=== PATIENT | male | born 1935 | race Caucasian/White ===

== ENCOUNTER → 2017-12-05 08:37 | Outpatient (CLI) | payer MEDICARE, SELFPAY ==
--- NOTE | 2017-12-05 08:37 | DT_ITS ---
This patient was seen during an EMR downtime December 05, 2017 - December 12, 2017. This patient may have a combination of paper and electronic documentation or all paper documentation. All documentation is viewable within the e-chart portion of [facility] for each patient visit.
[2017-12-09 20:47] LABS: ALB/GLOB Ratio 0.9 RATIO (0.9-2.4); AST(SGOT) 16 U/L (15-37); Alanine Aminotransfer ALT/SGPT 20 U/L (16-61); Albumin, Serum 3.7 g/dL (3.2-5.0); Alkaline Phosphatase 33 U/L (45-117); Anion Gap 9 (5-15); BUN 26 mg/dL (7-18); BUN/Creat Ratio 20.6 RATIO (10-20); Calcium,Total 8.6 mg/dL (8.5-10.1); Chloride 108 mmol/L (98-107); Cholesterol 131 mg/dL (200); Creatinine, Serum 1.26 mg/dL (0.70-1.30); EST Glomerular Filtration Rate 58 mL/min (>60); Est Glom Filt Rate - Afr Amer 70 mL/min (>60); Glucose 99 mg/dL (74-106); High Density Lipoprotein 35 mg/dL; Magnesium 2.1 mg/dL (1.6-2.6); Potassium 4.1 mmol/L (3.5-5.1); Protein, Total 7.7 g/dL (6.4-8.2); Sodium Level 142 mmol/L (136-145); Triglycerides 101 mg/dL; Very Low Density Lipoprotein 20 mg/dL (5-40)
== END ==
PROVIDERS: Family Provider Family Medicine; PCP Family Medicine; Visit Provider Family Medicine
DX: Z51.81 Encounter for therapeutic drug level monitoring (principal); E78.5 Hyperlipidemia, unspecified
CPT/HCPCS: 80053; 80061; 83735

== ENCOUNTER → 2019-03-30 12:17 | Outpatient (CLI) | payer MEDICARE, SELFPAY ==
[2016-01-08 08:56] VITALS: BMI 22.8
[2019-03-30 14:25] LABS: Absolute Lymphocyte Count 1.79 X10^3/uL (0.83-4.51); Absolute Neutrophil Count 3.3 X10^3/uL (2.0-7.7); Basophil# 0.04 X10^3/uL; Basophil% 0.7 % (0-1); Eosinophil# 0.24 X10^3/uL; Eosinophils% 4.1 % (0-5); Hemoglobin 13.2 g/dL (13.0-16.5); Lymphocyte # 1.79 X10^3/ul (4.0); Lymphocyte % 30.5 % (19-41); Mean Corp Hgb Conc 31.4 g/dL (32-36); Mean Corpuscular Hgb 30.3 pg (27.0-32.0); Mean Corpuscular Volume 96.3 fL (80-94); Mean Platelet Vol. 11.1 fl (6.2-12.0); Monocyte# 0.45 X10^3/uL; Monocyte% 7.7 % (0-10); NRBC Flagged by Analyzer 0 % (0-5); Neutrophil # 3.31 X10^3/uL (2.7-7.7); Neutrophil % 56.5 % (47-70); Platelet Count 229 K/mm3 (150-450); RBC Distribution Width SD 49.5 fl (35.1-43.9); Red Blood Count 4.36 M/mm3 (4.6-6.2); White Blood Count 5.9 K/mm3 (4.4-11.0)
[2019-03-30 14:32] LABS: ALB/GLOB Ratio 0.9 RATIO (0.9-2.4); AST(SGOT) 12 U/L (15-37); Alanine Aminotransfer ALT/SGPT 17 U/L (16-61); Albumin, Serum 3.9 g/dL (3.2-5.0); Alkaline Phosphatase 35 U/L (45-117); Anion Gap 3 (5-15); BUN 19 mg/dL (7-18); BUN/Creat Ratio 13.5 RATIO (10-20); Chloride 106 mmol/L (98-107); Cholesterol 142 mg/dL (200); Creatinine, Serum 1.41 mg/dL (0.70-1.30); EST Glomerular Filtration Rate 51 mL/min (>60); Est Glom Filt Rate - Afr Amer 62 mL/min (>60); Globulin 4.2 g/dL (2.2-4.2); Glucose 97 mg/dL (74-106); High Density Lipoprotein 46 mg/dL; Potassium 4.6 mmol/L (3.5-5.1); Protein, Total 8.1 g/dL (6.4-8.2); Sodium Level 139 mmol/L (136-145); Triglycerides 98 mg/dL; Very Low Density Lipoprotein 20 mg/dL (5-40)
[2019-03-30 16:28] LABS: Hepatitis C Antibody Non-Reactive (Nonreactive)
== END ==
PROVIDERS: Family Provider Family Medicine; PCP Family Medicine; Referring Provider Family Medicine; Visit Provider Family Medicine
DX: Z11.59 Encounter for screening for other viral diseases (principal); Z51.81 Encounter for therapeutic drug level monitoring; E78.5 Hyperlipidemia, unspecified
CPT/HCPCS: 80053; 80061; 85025; 86803

== ENCOUNTER 2019-05-11 10:32 | Emergency (ER) | payer MEDICARE, SELFPAY ==
[2019-05-11 10:33] VITALS: BP 164/79; PULSE 102; RESP 16; TEMP 36.4; O2SAT 98; BMI 23.6
[2019-05-11 10:49] VITALS: BP 138/81; PULSE 86; RESP 17; O2SAT 96
--- NOTE | 2019-05-11 10:56 | EKG12_ITS ---
Test Reason : Blood Pressure : / mmHG Vent. Rate : 087 BPM Atrial Rate : 087 BPM P-R Int : 166 ms QRS Dur : 078 ms QT Int : 370 ms P-R-T Axes : 076 078 074 degrees QTc Int : 445 ms Normal sinus rhythm Normal ECG Confirmed by NELI CANCHOLA, HAWK ([id number]), newspaper or periodical editor ALEIDA AMBROSE ([id number]) on 05/15/2019 2:17:28 PM Referred By: LUIS/TIMMY Confirmed By:HAWK QUINTEROS MD
--- NOTE | 2019-05-11 10:56 | RAD_ITS ---
STUDY: X-RAY CHEST REASON FOR EXAM: Male, 83 years old. Hypertension. Left arm pain. TECHNIQUE: Single AP portable view of the chest. COMPARISON: None. FINDINGS: EKG electrodes are seen. Hyperinflation. The lungs are clear. There is no demonstrated pleural abnormality. Normal size heart. Normal mediastinum and jason. Normal visualized pulmonary arteries. There is atherosclerotic calcification of the aortic arch with tortuosity. There are diffuse degenerative changes of the visualized thoracic spine. Normal visualized ribs, clavicles, and shoulders. There is no demonstrated abnormality of the visualized soft tissue structures of the upper abdomen. RAD/Chest 1 View (Portable) IMPRESSION: Hyperinflation. Electronically Signed: Sean Bacon, at 11:18 EST , Service support ,
[2019-05-11 11:08] VITALS: O2SAT 96
--- NOTE | 2019-05-11 11:12 | ED.VISSUMM ---
- ER Visit Summary Date of Service: 05/11/19 Chief Complaint: High blood pressure History of Present Illness: The patient is a 83 M who woke up this morning between 3 and 4 AM. He was having some pain in his left forearm. It felt like an aching pain and was 9 out of 10. It did not radiate. Nothing seemed to bring it on or make it worse. Nothing made it better, although he has not taken anything for it. He noted his blood pressure was 169/103. His numbers, specifically the diastolic pressure, has never been this high. He does not take anything for blood pressure. He has a history of GERD, hyperlipidemia, and glaucoma. He denies any history of coronary disease, aortic disease. Denies any history of radiculopathy. Denies any recent injury or new activities. Denies weakness or numbness. Denies any skin changes. Physical Examination: Blood pressure 164/79. Otherwise vitals unremarkable. Patient sitting upright and appears in no acute distress. Talking, breathing, moving comfortably. Heart regular rate and rhythm. Lungs clear. Neck is nontender with good range of motion. Extremities nontender with good range of motion. Good strength and sensation. Good pulses. Good neurologic testing. Legs nontender with no edema. Test Results: EKG showed sinus rhythm at a rate of 87 with no signs of ischemia or infarction pattern. Laboratory studies and chest x-ray pending. Emergency Department Course and Treatment: Patient presents with left arm pain of an unknown etiology. No inciting events, but also nothing concerning on exam. I do not believe any diagnostic testing is indicated for this. It seems to be getting better and is currently 3 out of 10. He declines any pain medicine for this. His pressure was elevated at home, but it is 164/79 here. We will continue to monitor. Patient does have history of hyperlipidemia, but no other significant medical history. Will check basic labs and chest x-ray. Repeat blood pressure in the 120s over 80s. No further intervention. Work-up here is unremarkable. Nothing to suggest ACS. There is no indication for hospitalization or inpatient care based on his very atypical symptoms and fairly low risk. There is no indication to image his arm. He was advised to take Tylenol and/or Motrin/Aleve for pain. Monitor for any new or worsening symptoms. Follow-up with primary care. Treatment Plan: As above Disposition: Discharge Impression: 1. Left arm pain This note was generated with [employer] dictation software. It may contain incorrect words, spelling, and punctuation that were not noted in review of the chart prior to signing ED Disposition - Plan for ED Patient: Referrals: Yung Covington MD [Primary Care Provider] -
[2019-05-11 11:18] LABS: Absolute Lymphocyte Count 1.32 X10^3/uL (0.83-4.51); Absolute Neutrophil Count 3.7 X10^3/uL (2.0-7.7); Basophil# 0.03 X10^3/uL; Basophil% 0.5 % (0-1); Eosinophil# 0.22 X10^3/uL; Eosinophils% 3.9 % (0-5); Hematocrit 37.9 % (40-54); Hemoglobin 12.1 g/dL (13.0-16.5); Lymphocyte # 1.32 X10^3/ul (4.0); Lymphocyte % 23.7 % (19-41); Mean Corp Hgb Conc 31.9 g/dL (32-36); Mean Corpuscular Hgb 30.7 pg (27.0-32.0); Mean Corpuscular Volume 96.2 fL (80-94); Mean Platelet Vol. 10.1 fl (6.2-12.0); Monocyte% 5.4 % (0-10); NRBC Flagged by Analyzer 0 % (0-5); Neutrophil # 3.69 X10^3/uL (2.7-7.7); Neutrophil % 66.1 % (47-70); Platelet Count 212 K/mm3 (150-450); RBC Distribution Width CV 13.7 % (11.6-14.6); RBC Distribution Width SD 48.5 fl (35.1-43.9); Red Blood Count 3.94 M/mm3 (4.6-6.2); White Blood Count 5.6 K/mm3 (4.4-11.0)
[2019-05-11 11:36] LABS: Anion Gap 9 (5-15); BUN 23 mg/dL (7-18); BUN/Creat Ratio 15.2 RATIO (10-20); Calcium,Total 8.6 mg/dL (8.5-10.1); Chloride 107 mmol/L (98-107); Creatinine, Serum 1.51 mg/dL (0.70-1.30); EST Glomerular Filtration Rate 47 mL/min (>60); Est Glom Filt Rate - Afr Amer 57 mL/min (>60); Estimated Creatinine Clearance 35.23 ml/min; Glucose 201 mg/dL (74-106); Potassium 4.2 mmol/L (3.5-5.1); Sodium Level 141 mmol/L (136-145)
--- NOTE | 2019-05-11 11:58 | ED.DEP ---
ED Disposition - Plan for ED Patient: Instructions: HYPERTENSION, To Be Confirmed Referrals: Yung Covington MD [Primary Care Provider] -
[2019-05-11 12:27] VITALS: BP 144/78; PULSE 76; RESP 14; O2SAT 96
== END 2019-05-11 12:28 | disposition home or self-care (01) ==
PROVIDERS: Emergency Provider Emergency Medicine; Family Provider Family Medicine; PCP Family Medicine
DX: M79.632 Pain in left forearm (principal); E78.5 Hyperlipidemia, unspecified; K21.9 Gastro-esophageal reflux disease without esophagitis; H40.9 Unspecified glaucoma; Z79.82 Long term (current) use of aspirin; Z79.899 Other long term (current) drug therapy; Z87.891 Personal history of nicotine dependence
CPT/HCPCS: 71045; 80048; 84484; 85025; 93005; 99284; A4216

== ENCOUNTER → 2019-10-03 09:15 | Outpatient (CLI) | payer MEDICARE, SELFPAY ==
--- NOTE | 2019-10-03 09:18 | RAD_ITS ---
STUDY: AIR-CONTRAST UPPER GI SERIES. REASON FOR EXAM: Male, 83 years old. HX BARRETTS ESOPHAGUS. 18 IMAGES FLUOROSCOPY TIME (if supplied): ( 60 seconds ) minutes/seconds TECHNIQUE: The patient ingested barium. Imaging of the esophagus, stomach and duodenum were obtained. COMPARISON: None. FINDINGS: There is evidence of a small sliding hiatal hernia with gastroesophageal reflux. 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 The afferent and efferent loops are patent. Noted some ulceration. No mass lesion is seen. RAD/Upper GI Dual Contrast IMPRESSION: Small hiatal hernia with gastroesophageal reflux. Status post Bilroth 2 anastomosis. Electronically Signed: Sean Bacon, at 13:10 EDT , Service support ,
== END ==
PROVIDERS: PCP Family Medicine; Referring Provider Nurse Practitioner Adult Health; Visit Provider Nurse Practitioner Adult Health
DX: K22.70 Barrett's esophagus without dysplasia (principal)
CPT/HCPCS: 74246

== ENCOUNTER → 2020-04-18 12:45 | Outpatient (CLI) | payer MEDICARE, SELFPAY | PROVIDERS: PCP Family Medicine; Referring Provider Family Medicine | DX: R73.9 Hyperglycemia, unspecified (principal) | CPT/HCPCS: 83036 ==

== ENCOUNTER 2020-07-31 15:38 | Outpatient (RCR) | payer MEDICARE, SELFPAY | END 2020-07-31 23:59 | LOC: IMMUN 15:38 | PROVIDERS: PCP Family Medicine; Referring Provider Family Medicine; Visit Provider Family Medicine | DX: Z23 Encounter for immunization (principal) | CPT/HCPCS: 0011A; 0012A; 91301 ==

== ENCOUNTER → 2020-10-28 13:24 | Outpatient (CLI) | payer MEDICARE, SELFPAY ==
[2020-10-28 14:33] LABS: Hemoglobin A1c 5.9 % (3.8-5.6)
== END ==
PROVIDERS: PCP Family Medicine; Referring Provider Family Medicine; Visit Provider Family Medicine
DX: R73.9 Hyperglycemia, unspecified (principal)
CPT/HCPCS: 83036

== ENCOUNTER → 2021-04-30 12:15 | Outpatient (CLI) | payer MEDICARE, SELFPAY ==
[2021-04-30 12:40] LABS: Cholesterol 149 mg/dL (200); High Density Lipoprotein 36 mg/dL; Triglycerides 106 mg/dL; Very Low Density Lipoprotein 21 mg/dL (5-40)
[2021-04-30 13:29] LABS: Hemoglobin A1c 5.9 % (3.8-5.6)
== END ==
PROVIDERS: PCP Family Medicine; Visit Provider Family Medicine
DX: E78.5 Hyperlipidemia, unspecified (principal); R73.9 Hyperglycemia, unspecified
CPT/HCPCS: 80061; 83036

== ENCOUNTER → 2021-05-18 12:14 | Outpatient (CLI) | payer MEDICARE, SELFPAY ==
[2021-05-18 12:55] LABS: Absolute Lymphocyte Count 1.63 X10^3/uL (0.83-4.51); Absolute Neutrophil Count 3.3 X10^3/uL (2.0-7.7); Basophil# 0.04 X10^3/uL; Basophil% 0.7 % (0-1); Eosinophils% 5.2 % (0-5); Hematocrit 38.9 % (40-54); Hemoglobin 12.9 g/dL (13.0-16.5); Lymphocyte # 1.63 X10^3/ul (0.83-4.51); Lymphocyte % 28.3 % (19-41); Mean Corp Hgb Conc 33.2 g/dL (32-36); Mean Corpuscular Hgb 31.2 pg (27.0-32.0); Mean Corpuscular Volume 94.2 fL (80-94); Monocyte% 8.7 % (0-10); NRBC Flagged by Analyzer 0 % (0-5); Neutrophil # 3.27 X10^3/uL (2.7-7.7); Neutrophil % 56.9 % (47-70); Platelet Count 238 K/mm3 (150-450); RBC Distribution Width CV 13.4 % (11.6-14.6); Red Blood Count 4.13 M/mm3 (4.6-6.2); White Blood Count 5.8 K/mm3 (4.4-11.0)
[2021-05-18 13:13] LABS: Vitamin B12 344 pg/mL (211-911)
[2021-05-18 13:47] LABS: Anion Gap 4 (5-15); BUN 18 mg/dL (7-18); BUN/Creat Ratio 13.6 RATIO (10-20); Chloride 107 mmol/L (98-107); Creatinine, Serum 1.32 mg/dL (0.70-1.30); EST Glomerular Filtration Rate 55 mL/min (>60); Est Glom Filt Rate - Afr Amer 66 mL/min (>60); Ferritin 19 ng/mL (26-388); Glucose 111 mg/dL (74-106); Iron 71 ug/dL (65-175); Iron Binding Capacity,Total 394 ug/dL (250-450); Potassium 4.5 mmol/L (3.5-5.1); Sodium Level 138 mmol/L (136-145)
== END ==
PROVIDERS: PCP Family Medicine; Visit Provider Family Medicine
DX: D64.9 Anemia, unspecified (principal); N28.9 Disorder of kidney and ureter, unspecified
CPT/HCPCS: 80048; 82607; 82728; 82746; 83540; 83550; 85025

== ENCOUNTER → 2021-05-18 16:21 | Outpatient (CLI) | payer MEDICARE, SELFPAY | PROVIDERS: PCP Family Medicine; Visit Provider Family Medicine | DX: D64.9 Anemia, unspecified (principal); N28.9 Disorder of kidney and ureter, unspecified ==

== ENCOUNTER 2022-05-28 17:14 | Inpatient (IN) | payer MEDICARE, SELFPAY ==
[2022-05-28] VITALS (9 sets, daily range): BP systolic 126–145; BP diastolic 78–93; PULSE 66–128; RESP 16–18; TEMP 36.2–36.8; O2SAT 97–100; BMI 24.1; BMI 23.2
--- NOTE | 2022-05-28 17:57 | EKG12_ITS ---
Test Reason : SOB Blood Pressure : / mmHG Vent. Rate : 076 BPM Atrial Rate : 076 BPM P-R Int : 170 ms QRS Dur : 078 ms QT Int : 406 ms P-R-T Axes : 081 094 081 degrees QTc Int : 456 ms Normal sinus rhythm Possible Right ventricular hypertrophy Abnormal ECG Confirmed by NELI CANCHOLA, HAWK ([id number]), slot editor LISA JC ([id number]) on 05/31/2022 11:23:47 AM Referred By: JEANNE/LANDON Confirmed By:HAWK QUINTEROS MD
--- NOTE | 2022-05-28 17:57 | EDS_ITS ---
HPI History of Present Illness Chief Complaint: Shortness of Breath Narrative Narrative: 86-year-old male with history of hyperlipidemia, GERD presenting with discomfort in the chest. He states this is exertional. He states this has been on for about 2 weeks. It is intermittent. He states that sometimes he can walk his dog around the block measuring about a half a mile and does have any symptoms and at other times he gets some discomfort and feels a little bit short of breath. He does feel lightheaded at times. He states when he stops to rest takes about 5 minutes to recover. Denies any cardiac history. Denies any history of DVT/PE and has no risk factors. PFSH PFSH Medical History no medical history Home Medications Dorzolamide Hcl/Timolol Maleat [Dorzolamide-Timolol Eye Drops] 1 drp OP BID 09/05/15 [History Last Taken Unknown] Omeprazole [Prilosec] 40 mg PO DAILY 09/05/15 [History Last Taken Unknown] simvastatin 10 mg tablet 10 mg PO QHS 09/05/15 [History Last Taken Unknown] latanoprost 0.005 % eye drops 1 drp EACH EYE DAILY 05/28/22 [History Last Taken Unknown] Allergy/AdvReac Type Severity Reaction Status Date / Time No Known Allergies Allergy Verified 05/28/22 17:15 Surgical History no surgical history Social History Smoking Status: Former smoker ROS ROS ED Constitutional Constitutional ED: Denies chills or fever(s) Eyes Eyes: Denies change in vision ENT ENT ED: Denies rhinorrhea or sore throat Cardiovascular Cardiovascular: Reports as per HPI Respiratory/Chest Respiratory/Chest: Reports dyspnea on exertion Gastrointestinal Gastrointestinal: Denies abdominal pain or constipation Genitourinary Genitourinary ED: Denies dysuria or hematuria Musculoskeletal Musculoskeletal: Denies arthralgias Integumentary Denies abscess Neurologic Neurologic: Denies headache(s) or paresthesias Psychiatric Psychiatric: Denies anxiety or depression EXAM Physical Exam Const Vital Signs: 05/28/22 17:15 05/28/22 17:53 05/28/22 18:09 Temperature 97.1 F L Temperature Source Temporal Pulse Rate 79 Respiratory Rate 18 Respiratory Effort Normal Respiratory Depth Normal Respiratory Pattern Normal Blood Pressure 136/93 H Blood Pressure Mean 107 Pulse Ox 100 97 Oxygen Delivery Method Room Air Room Air Room Air 05/28/22 19:14 05/28/22 21:00 Temperature 97.8 F Temperature Source Temporal Pulse Rate 66 98 Respiratory Rate 16 16 Respiratory Effort Respiratory Depth Respiratory Pattern Blood Pressure 134/78 H 145/78 H Blood Pressure Mean 96 100 Pulse Ox 98 100 Oxygen Delivery Method Room Air Room Air Positive well nourished General Appearance ED: NAD HEENT Reports TM's clear and moist mucous membranes Tympanic Membrane ED: Yes TM's clear Eyes PERRL and EOMs intact bilaterally Neck no lymphadenopathy Chest Wall inspection of chest normal Resp normal respiratory effort and clear to auscultation bilaterally Effort and Inspection: Negative for respiratory distress Auscultation: Negative for rales, rhonchi or wheezes Cardio regular rate and regular rhythm GI normal to inspection, nondistended, normoactive bowel sounds Neuro oriented x3 and CN's II-XII intact bilaterally Sensorium / Orientation: awake and alert Motor Exam: strength 5/5 throughout Psych mental status grossly normal Skin no rashes or lesions noted Heart Score History: Highly Suspicious ECG: Normal Age: >/= 65 years Risk Factors: 1 or 2 Risk Factors Troponin: </= Normal Limit Score: 5 MDM MDM MDM Narrative Medical decision making narrative: Patient presenting with chest discomfort and a little bit of dyspnea and lightheadedness with exertion. He states this is intermittent. He states he has to rest for 5 minutes when it does occur. He states sometimes he can walk around the block without any problems at all and other days he cannot. No fever, chills, cough. No history of cardiac disease. No DVT/PE risk factors and no history. EKG was obtained which shows sinus rhythm at a ventricular rate of 76 bpm without sign of ischemic change on my interpretation. Chest x-ray my interpretation shows no acute cardiopulmonary process and the radiologist agree. CBC shows a white blood cell count of 11.1, hemoglobin 12.6, hematocrit 39.3, platelets normal at 247. Initial high-sensitivity troponin is 11 and delta troponin is 14. HEART score of 5 based on suspicion, age, risk factors. I did recommend admission to the patient. Discussed this with the patient and Dr. Henderson who is on-call for Dr. Covington. He recommended admission as well. Patient was given 324 mg of aspirin. I discussed with the patient over the holiday weekend his cardiac work-up may not be finished until Tuesday and there might be is in the hospital and he is still amenable to staying. Discussed with hospitalist for admission. Impression: 1. Chest pain 2. Exertional angina 3. Dyspnea Lab Data Attestation: I reviewed the patient's lab results. Labs: Laboratory Results - last 24 hr 05/28/22 05/28/22 05/28/22 18:05 18:05 20:20 WBC 11.1 H RBC 4.06 L Hgb 12.6 L Hct 39.3 L MCV 96.8 H MCH 31.0 MCHC 32.1 RDW Std Deviation 48.3 H RDW Coeff of Pippa 13.6 Plt Count 247 MPV 10.5 Immature Gran % (Auto) 0.400 Neut % (Auto) 75.5 H Lymph % (Auto) 15.5 L [place] % (Auto) 6.0 Eos % (Auto) 2.3 Baso % (Auto) 0.3 Absolute Neuts (auto) 8.4 H Absolute Lymphs (auto) 1.72 Nucleated RBC % 0 Sodium 141 Potassium 4.2 Chloride 109 H Carbon Dioxide 28.0 Anion Gap 4 L BUN 22 H Creatinine 1.18 Estim Creat Clear Calc 42.67 Est GFR (MDRD) Af Amer 75 Est GFR (MDRD) Non-Af 62 BUN/Creatinine Ratio 18.6 Glucose 99 Calcium 9.2 Troponin I High Sens 11 14 Radiography Diagnostic Testing: Clinical Impression(s) from Imaging Studies Chest X-Ray 05/28/22 17:57 IMPRESSION: There are no acute findings. Electronically Signed: Carlos Alberto Velasquez MD at 18:46 EST Reading Location ID and State: [facility] / [place] , Service support , Discharge Plan Triage Chief Complaint: Shortness of Breath ED Provider: Ovidio Johnson Dx/Rx/DC Orders Prescriptions: No Action simvastatin 10 MG tablet 10 mg PO QHS Dorzolamide Hcl/Timolol Maleat [Dorzolamide-Timolol Eye Drops] 10 ML Drops 1 drp OP BID Omeprazole [Prilosec] 40 MG capsule 40 mg PO DAILY latanoprost 0.005 % drops 1 drp EACH EYE DAILY Label Comments: place 1 drop into both eyes at bedtime Primary Care Provider: Yung Covington Referrals: Yung Covington MD [Primary Care Provider] -
--- NOTE | 2022-05-28 17:57 | RAD_ITS ---
STUDY: X-RAY CHEST REASON FOR EXAM: Male, 86 years old. chest pain TECHNIQUE: XR Chest 1 View COMPARISON: 11.8 FINDINGS: There is atherosclerotic calcification of the aortic arch with tortuosity. There are diffuse degenerative changes of the visualized thoracic spine. There is degenerative osteoarthritis of the bilateral shoulders. There is no demonstrated pleural abnormality. Normal size heart. Normal mediastinum and jason. Normal visualized pulmonary arteries. There is no demonstrated abnormality of the visualized soft tissue structures of the upper abdomen. RAD/Chest 1 View (Portable) IMPRESSION: There are no acute findings. Electronically Signed: Carlos Alberto Velasquez MD at 18:46 EST ,
[2022-05-28 18:12] LABS: Absolute Lymphocyte Count 1.72 X10^3/uL (0.83-4.51); Absolute Neutrophil Count 8.4 X10^3/uL (2.0-7.7); Basophil# 0.03 X10^3/uL; Basophil% 0.3 % (0-1); Eosinophil# 0.26 X10^3/uL; Eosinophils% 2.3 % (0-5); Hematocrit 39.3 % (40-54); Hemoglobin 12.6 g/dL (13.0-16.5); Lymphocyte # 1.72 X10^3/ul (0.83-4.51); Lymphocyte % 15.5 % (19-41); Mean Corp Hgb Conc 32.1 g/dL (32-36); Mean Corpuscular Volume 96.8 fL (80-94); Mean Platelet Vol. 10.5 fl (6.2-12.0); Monocyte# 0.67 X10^3/uL; NRBC Flagged by Analyzer 0 % (0-5); Neutrophil # 8.38 X10^3/uL (2.7-7.7); Neutrophil % 75.5 % (47-70); Platelet Count 247 K/mm3 (150-450); RBC Distribution Width CV 13.6 % (11.6-14.6); RBC Distribution Width SD 48.3 fl (35.1-43.9); Red Blood Count 4.06 M/mm3 (4.6-6.2); White Blood Count 11.1 K/mm3 (4.4-11.0)
[2022-05-28 18:42] LABS: Anion Gap 4 (5-15); BUN 22 mg/dL (7-18); BUN/Creat Ratio 18.6 RATIO (10-20); Calcium,Total 9.2 mg/dL (8.5-10.1); Chloride 109 mmol/L (98-107); Creatinine, Serum 1.18 mg/dL (0.70-1.30); EST Glomerular Filtration Rate 62 mL/min (>60); Est Glom Filt Rate - Afr Amer 75 mL/min (>60); Estimated Creatinine Clearance 42.67 ml/min; Glucose 99 mg/dL (74-106); Potassium 4.2 mmol/L (3.5-5.1); Sodium Level 141 mmol/L (136-145); Troponin-I HS (w/2H Reflex) 11 pg/mL (3.0-78.0)
[2022-05-28 20:09] LABS: Reflex Troponin-HS? (from REC) Y
[2022-05-28 20:47] LABS: Troponin-I HS 14 pg/mL (3.0-78.0)
[2022-05-28] MEDS: Aspirin 81 MG TAB.CHEW 324 MG PO (21:18)
--- NOTE | 2022-05-28 21:54 | PCM.HP.STD ---
HPI - General General Date of Admission: 05/28/22 Date of Service: 05/28/22 Chief Complaint: Chest pain HPI Narrative CARLOZ COHEN, is a 86 M with a significant history of hyperlipidemia; glaucoma; hiatal hernia status post surgery and on omeprazole who presents to the emergency department with 2 to 3-week history of exertional retrosternal chest pain. His chest pain is nonradiating his chest pain improves with taking a deep breath. On some days he does not have chest pain. On the day of presentation he walked on a little inclination to a shop and his chest pain re-occurred. Associated with symptoms is shortness of breath; and lightheadedness. He denies any orthopnea or paroxysmal nocturnal dyspnea. He denies any nausea or vomiting. Patient went to his PCPs office and was instructed to come to emergency department for further work-up. Emergency Department doctor after seeing patient discussed case with on-call physician for PCP who recommended patient stays at a hospital for further testing. [facility] Medical History Former smoker GERD (gastroesophageal reflux disease) Medical History no medical history Home Medications Dorzolamide Hcl/Timolol Maleat [Dorzolamide-Timolol Eye Drops] 1 drp OP DAILY 09/05/15 [History Last Taken Unknown] Omeprazole [Prilosec] 40 mg PO DAILY 09/05/15 [History Last Taken Unknown] simvastatin 10 mg tablet 10 mg PO QHS 09/05/15 [History Last Taken Unknown] latanoprost 0.005 % eye drops 1 drp EACH EYE QHS 05/28/22 [History Last Taken Unknown] Allergy/AdvReac Type Severity Reaction Status Date / Time No Known Allergies Allergy Verified 05/28/22 17:15 Family History Other Dementia Heart disease Surgical History History of hip replacement History of repair of hiatal hernia Surgical History no surgical history Social History Smoking Status: Former smoker ROS ROS Narrative Pertinent positives and pertinent negatives as noted in HPI. All other systems were reviewed and are negative Vital Signs Vital Signs Vital Signs: 05/28/22 17:15 05/28/22 17:53 05/28/22 18:09 Temperature 97.1 F L Temperature Source Temporal Pulse Rate 79 Respiratory Rate 18 Respiratory Effort Normal Respiratory Depth Normal Respiratory Pattern Normal Blood Pressure 136/93 H Blood Pressure Mean 107 Pulse Ox 100 97 Oxygen Delivery Method Room Air Room Air Room Air 05/28/22 19:14 05/28/22 21:00 Temperature 97.8 F Temperature Source Temporal Pulse Rate 66 98 Respiratory Rate 16 16 Respiratory Effort Respiratory Depth Respiratory Pattern Blood Pressure 134/78 H 145/78 H Blood Pressure Mean 96 100 Pulse Ox 98 100 Oxygen Delivery Method Room Air Room Air Weight Weight: 72 kg Body Mass Index (BMI) 24.1 Physical Exam Narrative Physical exam: General: Well-nourished, well-developed. Head: Normocephalic, atraumatic, no tenderness Eyes: Vision is grossly intact. EOMI ENT, no trauma, moist mucous membranes, no rhinorrhea Neck: Nontender, full range of motion, no spinal tenderness. CVS: Regular rate and rhythm. S1-S2 present. No murmur, gallop or rub. Respiratory : clear to auscultation bilaterally, chest wall nontender, no wheezing Abdomen: Soft, nontender, nondistended, normal bowel sounds, no masses : Deferred Back: Nontender, no CVA tenderness. Extremities: Nontender full range of motion, no trauma Skin: Normal color, no trauma, abrasions Neuro: Alert, oriented, cranial nerves II through XII grossly intact. Psychiatry: Normal mood. Normal affect. Not depressed. Not anxious. Results Lab / Micro Data Result Diagrams: 05/28/22 18:05 05/28/22 18:05 Labs: Laboratory Results - last 24 hr 05/28/22 18:05: WBC 11.1 H, RBC 4.06 L, Hgb 12.6 L, Hct 39.3 L, MCV 96.8 H, MCH 31.0, MCHC 32.1, RDW Std Deviation 48.3 H, RDW Coeff of Pippa 13.6, Plt Count 247, MPV 10.5, Immature Gran % (Auto) 0.400, Neut % (Auto) 75.5 H, Lymph % (Auto) 15.5 L, [place] % (Auto) 6.0, Eos % (Auto) 2.3, Baso % (Auto) 0.3, Absolute Neuts (auto) 8.4 H, Absolute Lymphs (auto) 1.72, Nucleated RBC % 0 05/28/22 18:05: Sodium 141, Potassium 4.2, Chloride 109 H, Carbon Dioxide 28.0, Anion Gap 4 L, BUN 22 H, Creatinine 1.18, Estim Creat Clear Calc 42.67, Est GFR (MDRD) Af Amer 75, Est GFR (MDRD) Non-Af 62, BUN/Creatinine Ratio 18.6, Glucose 99, Calcium 9.2, Troponin I High Sens 11 05/28/22 20:20: Troponin I High Sens 14 Radiology Impression Chest X-Ray 05/28/22 17:57 IMPRESSION: There are no acute findings. Electronically Signed: Carlos Alberto Velasquez MD at 18:46 EST Reading Location ID and State: [facility] / [place] , Service support , Assessment & Plan Assessment/Plan (1) Angina pectoris: (2) Exertional dyspnea: PLAN: Plan Angina pectoris/exertional dyspnea Place on a monitored bed at PCU Actual CXR image was independently visualized. No acute cardiopulmonary process was noted. Actual EKG tracing was independently visualized. EKG tracing showed no ST or T wave abnormalities. ASA 81 mg p.o. daily ordered Will check lipid panel. CBC and BMP, unremarkable. Initial high sensitive troponin was 11. Repeat 14, trend. Serial cardiac enzymes ordered Stat EKG as needed for chest pain Stress test in the AM if the cardiac enzymes are negative DVT prophylaxis : SCD ordered. Charges/Coding Visit Charges Inpatient E&M: 37861 Init Hosp L2
--- NOTE | 2022-05-28 22:46 | EKG12_ITS ---
Test Reason : admit EKG Blood Pressure : / mmHG Vent. Rate : 125 BPM Atrial Rate : 000 BPM P-R Int : 000 ms QRS Dur : 080 ms QT Int : 346 ms P-R-T Axes : 000 101 037 degrees QTc Int : 499 ms Atrial fibrillation with rapid ventricular response Possible Right ventricular hypertrophy Abnormal ECG When compared with ECG of 28-MAY-2022 17:27, MANUAL COMPARISON REQUIRED, DATA IS UNCONFIRMED Confirmed by NELI CANCHOLA, HAWK ([id number]), website/blog editor LISA JC ([id number]) on 06/01/2022 9:07:50 AM Referred By: Confirmed By:HAWK QUINTEROS MD
[2022-05-28] MEDS: Atorvastatin Calcium 10 MG Tablet 5 MG PO (23:16)
[2022-05-28] MEDS: Latanoprost 0.005% 1 Bottle 1 DRP EACH EYE (23:17)
[2022-05-28] MEDS: Sodium Chloride 0.65% 1 SPRAY SPRAY.BTL NASAL (23:50)
[2022-05-29] VITALS (16 sets, daily range): BP systolic 90–134; BP diastolic 56–82; PULSE 68–180; RESP 15–18; TEMP 36.4–37.3; O2SAT 93–96
[2022-05-29] MEDS: dilTIAZem 25 MG/5 ML Vial 10 MG IV BOLUS ×2 (00:26→08:52)
[2022-05-29] MEDS: 0.9% Saline Lock 10 ML Syringe IV (00:27)
[2022-05-29 00:42] LABS: Magnesium 2.3 mg/dL (1.6-2.6)
[2022-05-29 00:44] LABS: International Normalized Ratio 1.1; Prothrombin Time (Protime)PT. 13.6 SECONDS (11.7-14.9)
[2022-05-29 00:47] LABS: Troponin-I HS 12 pg/mL (3.0-78.0)
[2022-05-29] MEDS: Heparin Injection (Vial) 5,000 UNIT/ML VIAL 4500 UNIT IV (01:00)
[2022-05-29] MEDS: HEPARIN/D5w 25,000 UNITS 25,000 UNITS/250 ML IV.SOLN. 10 UNITS CONT INF ×2 (01:00→23:26)
[2022-05-29] MEDS: Acetaminophen 325 MG Tablet 650 MG PO ×2 (05:42→20:55)
[2022-05-29] MEDS: Aspirin E.C. 81 MG Tablet PO (05:43)
--- NOTE | 2022-05-29 06:16 | ECHOD_ITS ---
Reason For Study: SOB, Chest pain Procedure This was a 2D Doppler, Color Flow transthoracic echocardiogram. Exam performed portable in patient room. Left Ventricle Normal left ventricle. Mild concentric left ventricular hypertrophy. Left ventricular systolic function is normal. The estimated ejection fraction is 60 %. No regional wall motion abnormalities noted. Right Ventricle Normal RV size. Normal systolic function. Atria Normal left atrium. Normal right atrium. Mitral Valve Normal mitral valve. Tricuspid Valve Normal tricuspid valve. Aortic Valve Trisinus/trileaflet aortic valve. Mild focal aortic valve calcification. Pulmonic Valve Normal pulmonic valve. Great Vessels Normal aortic root. The pulmonary artery is normal size. Normal inferior vena cava. Pericardium/Pleural No pericardial effusion. MMode/2D Measurements & Calculations LVIDd: 3.6 cm IVSd: 1.2 cm Ao root diam: 3.7 cm LVIDs: 2.1 cm LVPWd: 1.2 cm RVDd: 3.1 cm FS: 41.2 % LAV(MOD-bp): 45.8 ml LVAd ap4: 23.6 cm2 LVAd ap2: 24.2 cm2 LAV(MOD-bp) Indexed: 25.1 ml/m2 LVLd ap4: 7.9 cm LVLd ap2: 7.9 cm LAV(MOD-sp2): 40.9 ml EDV(MOD-sp4): 58.1 ml EDV(MOD-sp2): 62.5 ml LAV(MOD-sp4): 39.7 ml EDV(sp4-el): 59.9 ml EDV(sp2-el): 63.0 ml LVAs ap4: 12.4 cm2 LVAs ap2: 12.3 cm2 LVLs ap4: 6.6 cm LVLs ap2: 6.5 cm ESV(MOD-sp4): 20.1 ml ESV(MOD-sp2): 19.6 ml ESV(sp4-el): 19.5 ml ESV(sp2-el): 19.8 ml EF(MOD-sp4): 65.4 % EF(MOD-sp2): 68.5 % EF(sp4-el): 67.4 % SV(MOD-sp4): 38.0 ml SV(MOD-sp2): 42.8 ml SV(sp4-el): 40.4 ml LA dimension(2D): 4.0 cm LA A4 area: 16.2 cm2 RA A4 area: 13.4 cm2 Doppler Measurements & Calculations MV E max alec: 86.6 cm/sec Lat Peak E' Alec: 7.5 cm/sec Med Peak E' Alec: 7.2 cm/sec MV A max alec: 109.8 cm/sec E/E' lat: 11.6 E/E' med: 12.1 MV E/A: 0.79 Ao V2 max: 109.0 cm/sec LV V1 max: 79.1 cm/sec PA V2 max: 102.6 cm/sec Ao max P.8 mmHg LV V1 max P.5 mmHg PA V2 mean: 79.3 cm/sec TR max alec: 208.4 cm/sec TR max P.4 mmHg ECHO/Echo Complete Interpretation Summary Normal left ventricle. Mild concentric left ventricular hypertrophy. Left ventricular systolic function is normal. The estimated ejection fraction is 60 %. Mild focal aortic valve calcification. Ordering Physician: Yoel Kirk Performed By: Renu Hardin RDCS
[2022-05-29 07:15] LABS: Absolute Lymphocyte Count 0.34 X10^3/uL (0.83-4.51); Absolute Neutrophil Count 8.5 X10^3/uL (2.0-7.7); Basophil# 0.03 X10^3/uL; Basophil% 0.3 % (0-1); Eosinophils% 1.1 % (0-5); Hematocrit 37.3 % (40-54); Lymphocyte # 0.34 X10^3/ul (0.83-4.51); Lymphocyte % 3.7 % (19-41); Mean Corp Hgb Conc 32.2 g/dL (32-36); Mean Corpuscular Hgb 31.3 pg (27.0-32.0); Mean Corpuscular Volume 97.1 fL (80-94); Mean Platelet Vol. 10.4 fl (6.2-12.0); Monocyte# 0.27 X10^3/uL; Monocyte% 2.9 % (0-10); NRBC Flagged by Analyzer 0 % (0-5); Neutrophil # 8.54 X10^3/uL (2.7-7.7); Neutrophil % 91.7 % (47-70); POSITIVE DIFFERENTIAL YES; Platelet Count 216 K/mm3 (150-450); RBC Distribution Width CV 13.5 % (11.6-14.6); RBC Distribution Width SD 48.3 fl (35.1-43.9); Red Blood Count 3.84 M/mm3 (4.6-6.2); White Blood Count 9.3 K/mm3 (4.4-11.0)
[2022-05-29 07:20] LABS: Differential Indicated SCAN CRITERIA MET
[2022-05-29 07:31] LABS: Partial Thromboplast Time 64.2 Seconds (24.1-36.2)
[2022-05-29 07:41] LABS: Anion Gap 5 (5-15); BUN 22 mg/dL (7-18); BUN/Creat Ratio 17.1 RATIO (10-20); Calcium,Total 8.6 mg/dL (8.5-10.1); Chloride 111 mmol/L (98-107); Cholesterol 144 mg/dL (200); Creatinine, Serum 1.29 mg/dL (0.70-1.30); EST Glomerular Filtration Rate 56 mL/min (>60); Est Glom Filt Rate - Afr Amer 68 mL/min (>60); Estimated Creatinine Clearance 39.03 ml/min; Glucose 134 mg/dL (74-106); High Density Lipoprotein 36 mg/dL; Potassium 3.8 mmol/L (3.5-5.1); Sodium Level 140 mmol/L (136-145); Thyroid Stim Hormone (TSH) 2.36 uIU/mL (0.358-3.74); Triglycerides 90 mg/dL; Very Low Density Lipoprotein 18 mg/dL (5-40)
[2022-05-29 09:24] LABS: Differential Comment SCANNED
--- NOTE | 2022-05-29 09:26 | CON.PCM.CA_ITS ---
Assessment & Plan Assessment/Plan (1) Paroxysmal atrial fibrillation: PLAN: He presents with some exertional dyspnea and is noted to have paroxysmal atrial fibrillation. My recommendations at this time would be to obtain an echocardiogram to assess his ventricular function * Evaluate the results of the stress test * Continue the beta-rehan * Continue heparin for now * His [id number] score is actually 1 (2) Exertional dyspnea: PLAN: We will reevaluate his echocardiogram to assess what his left ventricular function is and depending on the findings further recommendations will be made. Thank you for allowing me to participate in the care of your patient. Please don't hesitate to call if any issues arise. HPI Consult Data Date of Consult: 05/29/22 HPI Narrative HPI Narrative: CARLOZ COHEN, is a 86 M who presents to the emergency room complaining of some shortness of breath with exertion and mild chest discomfort. He is actually quite an active man and has been walking his dog without much problem. He however says that he has had some recent shortness of breath. In the emergency room he was noted to be in sinus rhythm and was admitted. However on the telemetry floor he has been noted to be going in and out of atrial fibrillation. He was started on a heparin drip and scheduled for an echocardiogram as well as a stress test. During the stress test he was noted to be going in and out of A. fib. He denies any chest pain at this time. [facility] Medical History Former smoker GERD (gastroesophageal reflux disease) Medical History no medical history Home Medications Dorzolamide Hcl/Timolol Maleat [Dorzolamide-Timolol Eye Drops] 1 drp OP DAILY 09/05/15 [History Last Taken Unknown] Omeprazole [Prilosec] 40 mg PO DAILY 09/05/15 [History Last Taken Unknown] simvastatin 10 mg tablet 10 mg PO QHS 09/05/15 [History Last Taken Unknown] latanoprost 0.005 % eye drops 1 drp EACH EYE QHS 05/28/22 [History Last Taken Unknown] Allergy/AdvReac Type Severity Reaction Status Date / Time No Known Allergies Allergy Verified 05/28/22 17:15 Family History Other Dementia Heart disease Surgical History History of hip replacement History of repair of hiatal hernia Surgical History no surgical history Social History Smoking Status: Former smoker ROS Constitutional Constitutional: Denies fever(s) or weight loss Eyes Eyes: Reports systems reviewed and no addt'l complaints, except as documented ENT HEENT: Reports systems reviewed and no addt'l complaints, except as documented Cardiovascular Cardiovascular: Reports dyspnea on exertion and palpitations; Denies chest pain at rest, chest pain with activity, edema or paroxysmal nocturnal dyspnea Respiratory/Chest Respiratory/Chest: Denies dyspnea on exertion, productive cough, shortness of breath at rest or shortness of breath with exertion Gastrointestinal Gastrointestinal: Denies change in bowel habits, nausea, vomiting or weight changes Genitourinary Genitourinary: Denies difficulty urinating Musculoskeletal Musculoskeletal: Denies joint stiffness or muscle weakness Integumentary Integumentary: Denies lesions Neurologic Neurologic: Denies dizziness or syncope Psychiatric Psychiatric: Denies anxiety Endocrine Endocrinology: Denies excessive sweating or fatigue Hematologic/Lymphatic Hematologic/Lymphatic: Denies anemia Allergic/Immunologic Allergic/Immunologic: Denies seasonal rhinorrhea Physical Exam Const alert, oriented x3 and no apparent distress General Appearance: cooperative HEENT hearing grossly normal bilaterally Head and Scalp: atraumatic Eyes EOMs intact bilaterally Neck General: normal visual inspection Chest inspection of chest normal and palpation of chest normal Resp normal respiratory effort Auscultation: clear to auscultation bilaterally Cardio regular rate, regular rhythm, S1 normal heart sound and S2 normal heart sound Jugular Venous Distention: JVD GI normal to inspection, nondistended, normoactive bowel sounds Extremity normal capillary refill and no pedal edema Peripheral Pulses: Yes pulses 2+ throughout and femoral pulses present Skin no rashes or lesions noted Neuro oriented x3 and CN's II-XII intact bilaterally Psych Appearance: grossly normal and appropriate Risk Stratification Risk Stratification Applicable: No Objective Data Vital Signs: Vital Signs Temp Pulse Resp BP Pulse Ox O2 Del Method 99.2 F H 106 H 18 102/71 93 Room Air 05/29/22 04:55 05/29/22 04:55 05/29/22 04:55 05/29/22 04:55 05/29/22 04:55 05/29/22 04:56 Oxygen Delivery Method Room Air Weight: 153 lb 7.068 oz Body Mass Index (BMI) 23.2 Intake & Output: Intake and Output for Last 24 Hours 05/27/22 05/28/22 05/29/22 23:59 23:59 23:59 Intake Total 66.17 / 66.17 Output Total 400 / 400 Balance -333.83 / -333.83 Lab / Micro Data Result Diagrams: 05/29/22 07:06 05/29/22 07:06 Labs: Laboratory Results - last 24 hr 05/28/22 18:05: WBC 11.1 H, RBC 4.06 L, Hgb 12.6 L, Hct 39.3 L, MCV 96.8 H, MCH 31.0, MCHC 32.1, RDW Std Deviation 48.3 H, RDW Coeff of Pippa 13.6, Plt Count 247, MPV 10.5, Immature Gran % (Auto) 0.400, Neut % (Auto) 75.5 H, Lymph % (Auto) 15.5 L, [place] % (Auto) 6.0, Eos % (Auto) 2.3, Baso % (Auto) 0.3, Absolute Neuts (auto) 8.4 H, Absolute Lymphs (auto) 1.72, Nucleated RBC % 0 05/28/22 18:05: Sodium 141, Potassium 4.2, Chloride 109 H, Carbon Dioxide 28.0, Anion Gap 4 L, BUN 22 H, Creatinine 1.18, Estim Creat Clear Calc 42.67, Est GFR (MDRD) Af Amer 75, Est GFR (MDRD) Non-Af 62, BUN/Creatinine Ratio 18.6, Glucose 99, Calcium 9.2, Troponin I High Sens 11 05/28/22 20:20: Troponin I High Sens 14 05/29/22 00:14: Troponin I High Sens 12 05/29/22 00:14: Magnesium 2.3 05/29/22 00:24: PT 13.6, INR 1.1, APTT 32.0 05/29/22 07:06: WBC 9.3, RBC 3.84 L, Hgb 12.0 L, Hct 37.3 L, MCV 97.1 H, MCH 31.3, MCHC 32.2, RDW Std Deviation 48.3 H, RDW Coeff of Pippa 13.5, Plt Count 216, MPV 10.4, Immature Gran % (Auto) 0.300, Neut % (Auto) 91.7 H, Lymph % (Auto) 3.7 L, [place] % (Auto) 2.9, Eos % (Auto) 1.1, Baso % (Auto) 0.3, Absolute Neuts (auto) 8.5 H, Absolute Lymphs (auto) 0.34 L, Nucleated RBC % 0, Differential Comment SCANNED 05/29/22 07:06: Sodium 140, Potassium 3.8, Chloride 111 H, Carbon Dioxide 24.0, Anion Gap 5, BUN 22 H, Creatinine 1.29, Estim Creat Clear Calc 39.03, Est GFR (MDRD) Af Amer 68, Est GFR (MDRD) Non-Af 56 L, BUN/Creatinine Ratio 17.1, Glucose 134 H, Calcium 8.6, Triglycerides 90, Cholesterol 144, LDL Cholesterol 90, VLDL Cholesterol 18, HDL Cholesterol 36 L, TSH 2.36 05/29/22 07:06: APTT 64.2 H Cardiology Labs/Tests 05/28/22 18:05: WBC 11.1 H, RBC 4.06 L, Hgb 12.6 L, Hct 39.3 L, MCV 96.8 H, MCH 31.0, MCHC 32.1, Plt Count 247, MPV 10.5, Immature Gran % (Auto) 0.400, Neut % (Auto) 75.5 H, Lymph % (Auto) 15.5 L, [place] % (Auto) 6.0, Eos % (Auto) 2.3, Baso % (Auto) 0.3, Absolute Neuts (auto) 8.4 H, Nucleated RBC % 0 05/28/22 18:05: Sodium 141, Potassium 4.2, Chloride 109 H, Carbon Dioxide 28.0, Anion Gap 4 L, BUN 22 H, Creatinine 1.18, Est GFR (MDRD) Af Amer 75, Est GFR (MDRD) Non-Af 62, BUN/Creatinine Ratio 18.6, Glucose 99, Calcium 9.2 05/29/22 00:14: Magnesium 2.3 05/29/22 00:24: PT 13.6, INR 1.1, APTT 32.0 05/29/22 07:06: WBC 9.3, RBC 3.84 L, Hgb 12.0 L, Hct 37.3 L, MCV 97.1 H, MCH 31.3, MCHC 32.2, Plt Count 216, MPV 10.4, Immature Gran % (Auto) 0.300, Neut % (Auto) 91.7 H, Lymph % (Auto) 3.7 L, [place] % (Auto) 2.9, Eos % (Auto) 1.1, Baso % (Auto) 0.3, Absolute Neuts (auto) 8.5 H, Nucleated RBC % 0 05/29/22 07:06: Sodium 140, Potassium 3.8, Chloride 111 H, Carbon Dioxide 24.0, Anion Gap 5, BUN 22 H, Creatinine 1.29, Est GFR (MDRD) Af Amer 68, Est GFR (MDRD) Non-Af 56 L, BUN/Creatinine Ratio 17.1, Glucose 134 H, Calcium 8.6, Triglycerides 90, Cholesterol 144, LDL Cholesterol 90, VLDL Cholesterol 18, HDL Cholesterol 36 L 05/29/22 07:06: APTT 64.2 H Rhythm: EKG: ECHO: Stress Test: Cardiac Cath: PCI: CT Surgery: Holter monitor: EPS: PPM: CXR: Chest CT Scan: Radiography Diagnostic Testing: Radiology Impression Chest X-Ray 05/28/22 17:57 IMPRESSION: There are no acute findings. Electronically Signed: Carlos Alberto Velasquez MD at 18:46 EST Reading Location ID and State: [facility] / [place] , Service support ,
[2022-05-29] MEDS: Dorzolamide HCL/Timolol 10 ml Bottle 1 DRP OPHTHALMIC (09:41)
[2022-05-29] MEDS: Pantoprazole Sodium 40 MG Tablet PO (09:44)
--- NOTE | 2022-05-29 09:46 | STRESSREP ---
Stress Test Report Pharmacologic myocardial perfusion stress test. 86-year-old man with a history of dyspnea and paroxysmal atrial fibrillation. Resting EKG demonstrates atrial fibrillation with a rate of 160 bpm. Blood pressure is 92/58 mmHg. 0.4 mg of regadenoson was infused per usual protocol followed by rapid intravenous saline flush injection continuous EKG monitoring was performed. The patient had paroxysms of atrial fibrillation interspersed with sinus rhythm. There were no ST or T wave changes noted at rest or during infusion to suggest ischemia. The final blood pressure was 96/50 mmHg. The patient was given 10 mg of intravenous diltiazem post testing to stabilize his heart rate. Myocardial perfusion protocol. 10.0 mCi of technetium 99m sestamibi was injected at rest. 0.4 mg of regadenoson was infused per usual protocol. At peak infusion 30.0 mCi of technetium 99m sestamibi was injected stress images were obtained stress and rest images were reconstructed and compared in the short axis vertical long and horizontal long axis. Gated images were also obtained to Perfusion SPECT analysis: Review of the stress images demonstrate normal uptake of tracer noted in all areas of the myocardium. The resting images similar demonstrate normal uptake of tracer noted in all areas of the myocardium. No areas of reversibility are noted to suggest ischemia and no previous infarct is noted. Gated SPECT analysis: The gated ejection fraction is 75%. Conclusion: Normal pharmacologic myocardial perfusion stress test. Paroxysmal atrial fibrillation noted. Preserved ejection fraction
--- NOTE | 2022-05-29 09:47 | PCM.PN.HOSP ---
Subjective Subjective Follow-up on chest pain/A fib with RVR: Patient was seen and examined. He denied any chest pain or dizziness. He was noted overnight to intermittently have A. fib with RVR. Objective Data Objective Data Vital Signs: Vital Signs Temp Pulse Resp BP Pulse Ox O2 Del Method 99.2 F H 106 H 18 102/71 93 Room Air 05/29/22 04:55 05/29/22 04:55 05/29/22 04:55 05/29/22 04:55 05/29/22 04:55 05/29/22 04:56 Oxygen Delivery Method Room Air Weight: 69.6 kg Body Mass Index (BMI) 23.2 Intake & Output: Intake and Output for Last 24 Hours 05/27/22 05/28/22 05/29/22 23:59 23:59 23:59 Intake Total 66.17 / 66.17 Output Total 400 / 400 Balance -333.83 / -333.83 Lab / Micro Data Result Diagrams: 05/29/22 07:06 05/29/22 07:06 Labs: Laboratory Results - last 24 hr 05/28/22 18:05: WBC 11.1 H, RBC 4.06 L, Hgb 12.6 L, Hct 39.3 L, MCV 96.8 H, MCH 31.0, MCHC 32.1, RDW Std Deviation 48.3 H, RDW Coeff of Pippa 13.6, Plt Count 247, MPV 10.5, Immature Gran % (Auto) 0.400, Neut % (Auto) 75.5 H, Lymph % (Auto) 15.5 L, [place] % (Auto) 6.0, Eos % (Auto) 2.3, Baso % (Auto) 0.3, Absolute Neuts (auto) 8.4 H, Absolute Lymphs (auto) 1.72, Nucleated RBC % 0 05/28/22 18:05: Sodium 141, Potassium 4.2, Chloride 109 H, Carbon Dioxide 28.0, Anion Gap 4 L, BUN 22 H, Creatinine 1.18, Estim Creat Clear Calc 42.67, Est GFR (MDRD) Af Amer 75, Est GFR (MDRD) Non-Af 62, BUN/Creatinine Ratio 18.6, Glucose 99, Calcium 9.2, Troponin I High Sens 11 05/28/22 20:20: Troponin I High Sens 14 05/29/22 00:14: Troponin I High Sens 12 05/29/22 00:14: Magnesium 2.3 05/29/22 00:24: PT 13.6, INR 1.1, APTT 32.0 05/29/22 07:06: WBC 9.3, RBC 3.84 L, Hgb 12.0 L, Hct 37.3 L, MCV 97.1 H, MCH 31.3, MCHC 32.2, RDW Std Deviation 48.3 H, RDW Coeff of Pippa 13.5, Plt Count 216, MPV 10.4, Immature Gran % (Auto) 0.300, Neut % (Auto) 91.7 H, Lymph % (Auto) 3.7 L, [place] % (Auto) 2.9, Eos % (Auto) 1.1, Baso % (Auto) 0.3, Absolute Neuts (auto) 8.5 H, Absolute Lymphs (auto) 0.34 L, Nucleated RBC % 0, Differential Comment SCANNED 05/29/22 07:06: Sodium 140, Potassium 3.8, Chloride 111 H, Carbon Dioxide 24.0, Anion Gap 5, BUN 22 H, Creatinine 1.29, Estim Creat Clear Calc 39.03, Est GFR (MDRD) Af Amer 68, Est GFR (MDRD) Non-Af 56 L, BUN/Creatinine Ratio 17.1, Glucose 134 H, Calcium 8.6, Triglycerides 90, Cholesterol 144, LDL Cholesterol 90, VLDL Cholesterol 18, HDL Cholesterol 36 L, TSH 2.36 05/29/22 07:06: APTT 64.2 H Radiography Diagnostic Testing: Radiology Impression Chest X-Ray 05/28/22 17:57 IMPRESSION: There are no acute findings. Electronically Signed: Carlos Alberto Velasquez MD at 18:46 EST Reading Location ID and State: [facility] / [place] , Service support , Physical Exam Narrative Physical exam: General: Alert, Oriented x3, Cooperative, appears frail HEENT: Atraumatic Oral: Moist Mucosa Neck: Supple Lungs: Diminished to auscultation Cardiovascular: HS I+II, irregular, no murmurs Abdomen: Bowel Sounds Present, Soft, Non Tender Extremities: No edema Skin: No rashes, No breakdown Neurological: Grossly intact Psych/Mental Status: Appropriate Assessment & Plan Assessment/Plan (1) Angina pectoris: (2) Exertional dyspnea: (3) History of repair of hiatal hernia: PLAN: Plan 1.Acute exertional dyspnea secondary to A fib with RVR s/p cardizem bolus, continue on metoprolol 25mg BID Continue on heparin drip 2. Acute chest pain, stress test negative Continue on aspirin, statin, metoprolol 3. GERD, continue on PPI 4. DVT PPx- Heparin drip Charges/Coding Visit Charges OBSV E&M: 57395 Subsequent observation care L3
[2022-05-29] MEDS: Metoprolol Tartrate 25 MG Tablet PO ×2 (11:02→20:58)
--- NOTE | 2022-05-29 11:50 | CASEMGMT ---
RN WALDO Face to Face with patient for initial transition planning/care coordination assessment. RN CM introduced self and role at [facility]. Patient lying in bed, alert and oriented, at bedside. Patient willing to participate in assessment and is able to answer all questions appropriately. Care providers, pharmacy, and demographics verified. Patient wishes to discharge home, denies need for home health at this time. Patient states he has no further needs or concerns at this time. CM to follow for discharge planning needs that may arise. PCP: Nadya Specialists: none Preferred Pharmacy: [facility] Insurance: [facility] Prescription Benefit: yes Living Will/HPOA: yes, son Jeovany GRANT: , son Living Arrangements: Patient lives with in a bi-level home with 7 steps and railing between levels. Patient states he is independent and able to ambulate stairs at home. Transportation: self, DME/HHC: Patient states he has shower chair and walker at home. No previous HHC or SNF. Disposition Plan: Patient to discharge home with family support and follow-up plans in place. Ellen CARD, RN, CM
[2022-05-29 14:14] LABS: Partial Thromboplast Time 65.6 Seconds (24.1-36.2)
[2022-05-29 20:08] LABS: Partial Thromboplast Time 72.9 Seconds (24.1-36.2)
[2022-05-29] MEDS: Sodium Chloride 0.65% 1 SPRAY SPRAY.BTL NASAL (20:55)
[2022-05-29] MEDS: Atorvastatin Calcium 10 MG Tablet 5 MG PO (20:56)
[2022-05-29] MEDS: Latanoprost 0.005% 1 Bottle 1 DRP EACH EYE (20:58)
[2022-05-30 02:40] LABS: Partial Thromboplast Time 82.7 Seconds (24.1-36.2)
[2022-05-30 03:00] VITALS: BP 101/57; PULSE 63; PULSE 66; RESP 18; TEMP 36.6; O2SAT 94
[2022-05-30 07:00] VITALS: PULSE 76
[2022-05-30 08:51] VITALS: BP 121/70; PULSE 66; RESP 18; TEMP 36.6; O2SAT 95
[2022-05-30] MEDS: Aspirin E.C. 81 MG Tablet PO (08:56)
[2022-05-30] MEDS: Dorzolamide HCL/Timolol 10 ml Bottle 1 DRP OPHTHALMIC (08:57)
[2022-05-30] MEDS: Pantoprazole Sodium 40 MG Tablet PO (08:58)
[2022-05-30 08:59] VITALS: BP 121/70; PULSE 66
[2022-05-30] MEDS: Metoprolol Tartrate 25 MG Tablet PO (08:59)
--- NOTE | 2022-05-30 09:42 | PN.CARD_ITS ---
Subjective Subjective Patient seen and evaluated. Appears to be doing well. Objective Data Vital Signs: Vital Signs Temp Pulse Resp BP Pulse Ox O2 Del Method 97.9 F 66 18 121/70 H 95 Room Air 05/30/22 08:51 05/30/22 08:59 05/30/22 08:51 05/30/22 08:59 05/30/22 08:51 05/30/22 08:51 Oxygen Delivery Method Room Air Weight: 153 lb 7.068 oz Body Mass Index (BMI) 23.2 Intake & Output: Intake and Output for Last 24 Hours 05/28/22 05/29/22 05/30/22 23:59 23:59 23:59 Intake Total 484.34 / 784.34 690.47 / 690.47 Output Total 900 / 900 Balance -415.66 / -115.66 690.47 / 690.47 Lab / Micro Data Result Diagrams: 05/29/22 07:06 05/29/22 07:06 Labs: Laboratory Results - last 24 hr 05/29/22 13:30: APTT 65.6 H 05/29/22 19:49: APTT 72.9 H 05/30/22 02:05: APTT 82.7 H Cardiology Labs/Tests 05/29/22 13:30: APTT 65.6 H 05/29/22 19:49: APTT 72.9 H 05/30/22 02:05: APTT 82.7 H Rhythm: EKG: ECHO: Stress Test: Cardiac Cath: PCI: CT Surgery: Holter monitor: EPS: PPM: CXR: Chest CT Scan: Radiography Diagnostic Testing: Radiology Impression Echocardiogram 05/29/22 06:16 Interpretation Summary Normal left ventricle. Mild concentric left ventricular hypertrophy. Left ventricular systolic function is normal. The estimated ejection fraction is 60 %. Mild focal aortic valve calcification. Ordering Physician: Yoel Kirk Performed By: Renu Hardin RDCS Physical Exam Const alert, oriented x3 and no apparent distress General Appearance: cooperative HEENT hearing grossly normal bilaterally Head and Scalp: atraumatic Eyes EOMs intact bilaterally Neck General: normal visual inspection Chest inspection of chest normal and palpation of chest normal Resp normal respiratory effort Auscultation: clear to auscultation bilaterally Cardio regular rate, regular rhythm, S1 normal heart sound and S2 normal heart sound Jugular Venous Distention: JVD GI normal to inspection, nondistended, normoactive bowel sounds Extremity normal capillary refill and no pedal edema Peripheral Pulses: Yes pulses 2+ throughout and femoral pulses present Skin no rashes or lesions noted Neuro oriented x3 and CN's II-XII intact bilaterally Psych Appearance: grossly normal and appropriate Assessment & Plan Assessment/Plan (1) Paroxysmal atrial fibrillation: PLAN: He presents with some exertional dyspnea and is noted to have paroxysmal atrial fibrillation. His stress test demonstrated no evidence of ischemia and his echocardiogram demonstrated preserved left ventricular systolic function. * Continue the beta-rehan * He appears to have maintained sinus rhythm since yesterday. * His [id number] score is actually 1 * I have talked to him and at the moment he agrees to be a candidate for the change A. fib trial. He will be contacted within the next 24 to 48 hours to see us in the office and be randomized, if completely agreeable. I have given him material to read. (2) Exertional dyspnea: PLAN: His echocardiogram demonstrated preserved left ventricular systolic function. Thus it appears that his shortness of breath was likely from the atrial fibrillation. Thank you for allowing me to participate in the care of your patient. Please don't hesitate to call if any issues arise.
[2022-05-30 09:57] LABS: Partial Thromboplast Time 63.3 Seconds (24.1-36.2)
--- NOTE | 2022-05-30 11:01 | DCINST_ITS ---
Discharge Instructions Diet Discharge Diet: Low fat / Low cholesterol and 2000 mg Sodium Diet Activity Discharge Activity: Return to Normal Activity Follow Up Care Test Results: Test results from this visit will be discussed in further detail at your follow- up appointment, if applicable. Discharge Plan Admission Admit Date/Time: 05/29/22 13:04 Primary Reason for Your Visit: A. fib with RVR Attending Provider: Ruthann Godinez Primary Care Provider: Yung Covington Consulting Providers: Yoel Kirk ; Wilner Tretn Instructions Additional Instructions / Restrictions: Take note of changes to your medications Continue to take your medications as prescribed Follow-up with your primary care doctor within 1 week Follow-up with cardiology within 1 to 2 weeks as scheduled Discharge Orders/Prescriptions Prescriptions: New aspirin 81 mg Tablet,Delayed Release (Dr/Ec) 81 mg PO BREAKFAST 30 Days Qty: 30 0RF metoprolol tartrate 25 mg Tablet 25 mg PO BID 30 Days Qty: 60 0RF Continued simvastatin 10 MG tablet 10 mg PO QHS Dorzolamide Hcl/Timolol Maleat [Dorzolamide-Timolol Eye Drops] 10 ML Drops 1 drp OP DAILY Omeprazole [Prilosec] 40 MG capsule 40 mg PO DAILY latanoprost 0.005 % drops 1 drp EACH EYE QHS Label Comments: place 1 drop into both eyes at bedtime Referrals / Follow Up: Yung Covington MD [Primary Care Provider] - In 1 Week Wilner Trent MD [Med Staff - Active Staff] - Within 2 Weeks Disposition Disposition (needs filled in before D/C Order can be placed): Home, Self Care
--- NOTE | 2022-05-30 11:11 | PCM.DC.SUM ---
Providers Date of Admission: 05/29/22 Date of Discharge: 05/30/22 Primary Care Physician: Dr. Yung Covington MD Consultations 05/29/22 09:52 Consult: Cardiology Routine Consulting Provider: Wilner Trent Reason for Consult: A. fib with RVR EMERGENT Consult: No MD Notified: Yes Date Notified: 05/29/22 Time Notified: 09:52 Method of Notification: Verbal Reason For Visit: ANGINA PECTORIS Diagnosis Discharge Diagnosis (1) Paroxysmal atrial fibrillation: Status: Acute Code(s): I48.0 - Paroxysmal atrial fibrillation (2) Exertional dyspnea: Status: Acute Code(s): R06.09 - Other forms of dyspnea Plan 1.Acute exertional dyspnea secondary to A fib with RVR s/p cardizem bolus, continue on metoprolol 25mg BID Continue on heparin drip 2. Acute chest pain, stress test negative Continue on aspirin, statin, metoprolol 3. GERD, continue on PPI 4. DVT PPx- Heparin drip Medications at Discharge Home Medications Dorzolamide Hcl/Timolol Maleat [Dorzolamide-Timolol Eye Drops] 1 drp OP DAILY 09/05/15 Omeprazole [Prilosec] 40 mg PO DAILY 09/05/15 simvastatin 10 mg tablet 10 mg PO QHS 09/05/15 latanoprost 0.005 % eye drops 1 drp EACH EYE QHS 05/28/22 aspirin 81 mg tablet,delayed release 81 mg PO BREAKFAST 30 days #30 tabs 05/30/22 metoprolol tartrate 25 mg tablet 25 mg PO BID 30 days #60 tabs 05/30/22 Hospital Course Operations None Procedures 2-D Echocardiogram Summary of Care Provided Minutes Spent on Discharge: 35 Hospital Course: 86-year-old male with past medical history of hyperlipidemia, GERD who presented with 2 to 3-week history of exertional dyspnea. This was associated with some chest discomfort worse on exertion. Patient was admitted to the progressive care unit and monitored on telemetry. He had episodes of A. fib with RVR. He received Cardizem, was started on heparin drip. His troponins were unremarkable. He was seen by cardiology, underwent stress echocardiogram that was unremarkable. Patient was started on metoprolol 25mg twice daily. He was also started on aspirin 81 mg daily for his [id number] score. He will follow-up with cardiology in the outpatient. Physical Exam Narrative Physical exam: General: Alert, Oriented x3, Cooperative, appears frail HEENT: Atraumatic Oral: Moist Mucosa Neck: Supple Lungs: Diminished to auscultation Cardiovascular: HS I+II, irregular, no murmurs Abdomen: Bowel Sounds Present, Soft, Non Tender Extremities: No edema Skin: No rashes, No breakdown Neurological: Grossly intact Psych/Mental Status: Appropriate Weight / BMI Weight Weight: 69.6 kg Body Mass Index (BMI) 23.2 ABG / Lab / Microbiology Data Result Diagrams: 05/29/22 07:06 05/29/22 07:06 Laboratory: Laboratory Results - last 24 hr 05/29/22 13:30: APTT 65.6 H 05/29/22 19:49: APTT 72.9 H 05/30/22 02:05: APTT 82.7 H 05/30/22 09:00: APTT 63.3 H Radiography Diagnostic Testing: Radiology Impression Echocardiogram 05/29/22 06:16 Interpretation Summary Normal left ventricle. Mild concentric left ventricular hypertrophy. Left ventricular systolic function is normal. The estimated ejection fraction is 60 %. Mild focal aortic valve calcification. Ordering Physician: Yoel Kirk Performed By: Renu Hardin RDCS D/C Instructions Discharge Diet: Low fat / Low cholesterol and 2000 mg Sodium Diet Meaningful Use Info Meaningful Use Diagnoses (Choose all that apply): None applicable Discharge Plan Admission Admit Date/Time: 05/29/22 13:04 Primary Reason for Your Visit: A. fib with RVR Attending Provider: Ruthann Godinez Primary Care Provider: Yung Covington Consulting Providers: Yoel Kirk ; Wilner Trent Instructions Additional Instructions / Restrictions: Take note of changes to your medications Continue to take your medications as prescribed Follow-up with your primary care doctor within 1 week Follow-up with cardiology within 1 to 2 weeks as scheduled Discharge Orders/Prescriptions Prescriptions: New aspirin 81 mg Tablet,Delayed Release (Dr/Ec) 81 mg PO BREAKFAST 30 Days Qty: 30 0RF metoprolol tartrate 25 mg Tablet 25 mg PO BID 30 Days Qty: 60 0RF Continued simvastatin 10 MG tablet 10 mg PO QHS Dorzolamide Hcl/Timolol Maleat [Dorzolamide-Timolol Eye Drops] 10 ML Drops 1 drp OP DAILY Omeprazole [Prilosec] 40 MG capsule 40 mg PO DAILY latanoprost 0.005 % drops 1 drp EACH EYE QHS Label Comments: place 1 drop into both eyes at bedtime Referrals / Follow Up: Wilner Trent MD [Med Staff - Active Staff] - Within 2 Weeks Yung Covington MD [Primary Care Provider] - In 1 Week Disposition Disposition (needs filled in before D/C Order can be placed): Home, Self Care Charges/Coding Visit Charges Inpatient E&M: 97967 Disch Hosp
[2022-05-30 12:45] VITALS: BP 121/69; PULSE 74; RESP 18; TEMP 37; O2SAT 97
[2022-06-03 14:14] LABS: AST(SGOT) 13 U/L (15-37); Alanine Aminotransfer ALT/SGPT 16 U/L (16-61); Albumin, Serum 3.5 g/dL (3.2-5.0); Alkaline Phosphatase 26 U/L (45-117); Bilirubin, Direct 0.14 mg/dL (0.00-0.30); Globulin 3.4 g/dL (2.2-4.2); Protein, Total 6.9 g/dL (6.4-8.2)
== END 2022-05-30 13:06 | disposition home or self-care (01) | DRG 310 ==
LOC: ED 21:56 → PCU 22:24
PROVIDERS: Admitting Provider Hospitalist; Emergency Provider Student in an Organized Health Care Education/Training Program; PCP Family Medicine; Visit Provider Internal Medicine
DX: I48.0 Paroxysmal atrial fibrillation (principal); E78.5 Hyperlipidemia, unspecified; K21.9 Gastro-esophageal reflux disease without esophagitis; Z87.891 Personal history of nicotine dependence; Z79.82 Long term (current) use of aspirin; Z79.01 Long term (current) use of anticoagulants; R07.9 Chest pain, unspecified; R06.09 Other forms of dyspnea
CPT/HCPCS: 36415; 71045; 78452; 80048; 80061; 80076; 83735; 84443; 84484; 85025; 85610; 85730; 93005; 93017; 93306; 99284; A9500; A4216; J2785

== ENCOUNTER 2023-04-25 20:17 | Observation (INO) | payer MEDICARE, SELFPAY ==
[2023-04-25 20:18] VITALS: BP 156/86; PULSE 67; RESP 18; TEMP 36.6; O2SAT 97
[2023-04-25 20:35] VITALS: BMI 25.0
[2023-04-25 20:44] LABS: Bedside Glucose 162 mg/dL (74-106)
--- NOTE | 2023-04-25 21:32 | CT_ITS ---
STUDY: CT BRAIN WITHOUT CONTRAST REASON FOR EXAM: Male, 87 years old. Confusion RADIATION DOSAGE (If Supplied By Facility): CTDIvol = ( 44.99 ) mGy, DLP = ( 812.98 ) mGycm TECHNIQUE: Transaxial CT imaging of the brain was performed without administration of intravenous contrast material. Individualized dose optimization techniques were used for this CT. COMPARISON: No relevant priors. FINDINGS: Normal soft tissue structures. Normal calvarium. There is mild cerebral atrophy with widening of the extra-axial spaces and ventricular dilatation. There are areas of decreased attenuation within the white matter tracts of the supratentorial brain, consistent with microvascular disease changes. Normal basal ganglia and thalami. Normal brainstem. Normal cerebellum. There is no intracranial hemorrhage. There are no findings of an acute ischemic infarction. Normal visualized paranasal sinuses. CT/Brain/Head without Contrast IMPRESSION: Chronic involutional changes of the brain. Electronically Signed: Jere Sinha MD at 22:15 EDT ,
[2023-04-25 22:01] VITALS: PULSE 65; RESP 17
--- NOTE | 2023-04-25 22:01 | RAD_ITS ---
STUDY: X-RAY CHEST REASON FOR EXAM: Male, 87 years old. Confusion TECHNIQUE: Single AP portable view of the chest. COMPARISON: 05/28/2022 FINDINGS: The lungs are clear and expanded. There is no demonstrated pleural abnormality. Normal size heart. Normal mediastinum and jason. Normal visualized pulmonary arteries. Normal visualized aortic arch and descending thoracic aorta. Normal visualized thoracic spine. Normal visualized ribs, clavicles, and shoulders. There is no demonstrated abnormality of the visualized soft tissue structures of the upper abdomen. RAD/Chest 1 View (Portable) IMPRESSION: Normal x-ray examination of the chest. Electronically Signed: Jere Sinha MD at 23:05 EDT ,
[2023-04-25 22:04] LABS: Absolute Lymphocyte Count 1.94 X10^3/uL (0.83-4.51); Absolute Neutrophil Count 4.2 X10^3/uL (2.0-7.7); Basophil# 0.06 X10^3/uL; Basophil% 0.8 % (0-1); Eosinophil# 0.27 X10^3/uL; Eosinophils% 3.8 % (0-5); Hematocrit 37.4 % (40-54); Lymphocyte # 1.94 X10^3/ul (0.83-4.51); Lymphocyte % 27.1 % (19-41); Mean Corp Hgb Conc 32.1 g/dL (32-36); Mean Corpuscular Hgb 30.8 pg (27.0-32.0); Mean Corpuscular Volume 95.9 fL (80-94); Mean Platelet Vol. 10.6 fl (6.2-12.0); Monocyte# 0.64 X10^3/uL; Monocyte% 8.9 % (0-10); NRBC Flagged by Analyzer 0 % (0-5); Neutrophil # 4.24 X10^3/uL (2.7-7.7); Neutrophil % 59.1 % (47-70); Platelet Count 216 K/mm3 (150-450); RBC Distribution Width CV 13.5 % (11.6-14.6); RBC Distribution Width SD 47.7 fl (35.1-43.9); White Blood Count 7.2 K/mm3 (4.4-11.0)
[2023-04-25 22:24] LABS: Bacteria 0 SEEN /hpf (None Seen); Mucous, Urine 0 SEEN /hpf (<or=2+); Red Blood Cells-Urine 0 SEEN /hpf (0-5); White Blood Cells 0 SEEN /hpf (0-5)
[2023-04-25 22:30] LABS: ALB/GLOB Ratio 0.9 RATIO (0.9-2.4); AST(SGOT) 14 U/L (15-37); Alanine Aminotransfer ALT/SGPT 16 U/L (16-61); Albumin, Serum 3.5 g/dL (3.2-5.0); Alkaline Phosphatase 26 U/L (45-117); Anion Gap 5 (5-15); BUN 22 mg/dL (7-18); BUN/Creat Ratio 15.8 RATIO (10-20); Calcium,Total 8.8 mg/dL (8.5-10.1); Chloride 108 mmol/L (98-107); Creatinine, Serum 1.39 mg/dL (0.70-1.30); EST Glomerular Filtration Rate 51 mL/min (>60); Est Glom Filt Rate - Afr Amer 62 mL/min (>60); Estimated Creatinine Clearance 35.54 ml/min; Globulin 3.7 g/dL (2.2-4.2); Glucose 122 mg/dL (74-106); Potassium 4.3 mmol/L (3.5-5.1); Protein, Total 7.2 g/dL (6.4-8.2); Sodium Level 140 mmol/L (136-145); Troponin-I HS (w/2H Reflex) 9 pg/mL (3.0-78.0)
[2023-04-25 22:34] LABS: Color, Urine Yellow (Yellow); Glucose, Dipstick Normal (Normal); Ketone-Dipstick Negative (Negative); Leukocyte Esterase-Dipstick Negative /ul (Negative); Nitrite-Dipstick Negative (Negative); Occult Blood-Urine Negative /ul (Negative); Protein-Dipstick Negative (Negative); Specific Gravity, Urine 1.015 (1.002-1.030); Urine Bilirubin Dipstick Negative (Negative); Urine Clarity Sl. Cloudy (Clear); Urine Urobilinogen Normal (Normal)
[2023-04-25 22:57] LABS: Squamous Epithelial Cells - UA 0-5 SEEN /hpf (0-5)
[2023-04-25] MEDS: Ondansetron 4 MG/2 ML Vial IV (23:22)
[2023-04-25 23:33] VITALS: BP 129/71; PULSE 64; RESP 22; O2SAT 97
--- NOTE | 2023-04-25 23:40 | EDS_ITS ---
HPI History of Present Illness Chief Complaint: Confusion Informant: patient Onset/Context/Timing Onset: Today Context: Sudden Onset Timing: Intermittent and Lasts (1-1/2 hours) Quality: Expressive aphasia Worsened by: Nothing Relieved by: Nothing Narrative Narrative: Patient presents with episode of confusion that occurred today. Patient states he was walking his dog and was talking to his son on the phone. Patient states he had a sudden onset where he could not remember his son's name and then was unable to speak. Patient states he wanted to speak but could not get any words out. Patient states he could not remember his daughter's name as well. Family states this lasted approximately 1-1/2 hours. Upon arrival to the emergency department, patient felt back to normal. Patient denies any chest pain or shortness of breath. Patient states he did have a headache earlier today. [facility] Medical History Former smoker GERD (gastroesophageal reflux disease) Paroxysmal atrial fibrillation Home Medications Dorzolamide Hcl/Timolol Maleat [Dorzolamide-Timolol Eye Drops] 1 drp OP DAILY 09/05/15 [History Last Taken Unknown] Omeprazole [Prilosec] 40 mg PO DAILY 09/05/15 [History Last Taken Unknown] simvastatin 10 mg tablet 10 mg PO QHS 09/05/15 [History Last Taken Unknown] latanoprost 0.005 % eye drops 1 drp EACH EYE QHS 05/28/22 [History Last Taken Unknown] metoprolol tartrate 25 mg tablet 25 mg PO BID #180 tabs 06/29/22 [Rx Last Taken Unknown] apixaban 5 mg tablet (Eliquis) 5 mg PO BID use this RX for next fill, pt fille 07/07/22. Thx. #60 tabs 07/08/22 [Rx Last Taken Unknown] omega 6-que-uxo-fish oil 300 mg-1,000 mg capsule 1 cap PO DAILY 09/08/22 [History Last Taken Unknown] zinc gluconate 30 mg tablet 25 mg PO DAILY 09/08/22 [History Last Taken Unknown] Allergy/AdvReac Type Severity Reaction Status Date / Time No Known Allergies Allergy Verified 04/25/23 20:18 Family History Other Dementia Heart disease Surgical History History of hip replacement History of repair of hiatal hernia Social History Smoking Status: Former smoker ROS ROS ED Constitutional Constitutional ED: Denies chills or fever(s) Eyes Eyes: Denies blurry vision or change in vision ENT ENT ED: Denies rhinorrhea or sore throat Cardiovascular Cardiovascular: Denies chest pain or palpitations Respiratory/Chest Respiratory/Chest: Denies cough or dyspnea Gastrointestinal Gastrointestinal: Denies nausea or vomiting Genitourinary Genitourinary ED: Denies dysuria or hematuria Musculoskeletal Musculoskeletal: Denies back pain or neck pain Integumentary Denies abscess or rash Neurologic Neurologic: Reports headache(s); Denies weakness Allergic/Immunologic Allergic/Immunologic ED: Denies mouth swelling or urticaria EXAM Physical Exam Const Vital Signs: 04/25/23 20:18 04/25/23 22:01 04/25/23 23:33 Temperature 97.8 F Temperature Source Temporal Temporal Pulse Rate 67 65 64 Respiratory Rate 18 17 22 H Blood Pressure 156/86 H 129/71 H Blood Pressure Mean 109 90 Pulse Ox 97 97 Oxygen Delivery Method Room Air Room Air Room Air Oxygen Flow Rate (L/min) 97.8 Positive well nourished and well developed General Appearance ED: well developed and NAD HEENT Reports moist mucous membranes Neck supple and no JVD Resp normal respiratory effort and clear to auscultation bilaterally Cardio regular rate and regular rhythm GI non-tender and non-distended Palpation: soft Extremity normal to inspection Neuro oriented x3, CN's II-XII intact bilaterally and no sensory deficits noted Sensorium / Orientation: alert Motor Exam: strength 5/5 throughout Psych mental status grossly normal MDM MDM MDM Narrative Medical decision making narrative: Differential diagnosis includes TIA, stroke, electrolyte abnormality, infection, cardiac dysrhythmia, cardiac ischemia, and hypoglycemia. CT scan of the brain will be obtained to assess for stroke and intracranial bleeding. EKG will be obtained to assess for cardiac dysrhythmia and cardiac ischemia. Chest x-ray will be obtained to assess for pneumonia. CBC will be obtained to assess for leukocytosis and anemia. Comprehensive metabolic profile will be obtained to assess for hepatic function, renal function, and electrolyte abnormality. High- sensitivity troponin will be obtained to assess for cardiac ischemia. Urinalysis will be obtained to assess for urinary tract infection. 2-hour repeat high-sensitivity troponin will be obtained to assess for ongoing cardiac ischemia. Lab Data Attestation: I reviewed the patient's lab results. Lab results narrative: CBC was reviewed. There is a mild anemia with a hemoglobin of 12.0 hematocrit 37.4. Comprehensive metabolic profile was reviewed. BUN was 22 and creatinine was 1.39. These are consistent with prior results. High-sensitivity troponin was reviewed and was normal at 9. Urinalysis was reviewed. There is no evidence of urinary tract infection or hematuria. BGT was obtained and was 162. Labs: Laboratory Results - last 24 hr 04/25/23 04/25/23 04/25/23 20:25 21:55 22:15 WBC 7.2 RBC 3.90 L Hgb 12.0 L Hct 37.4 L MCV 95.9 H MCH 30.8 MCHC 32.1 RDW Std Deviation 47.7 H RDW Coeff of Pippa 13.5 Plt Count 216 MPV 10.6 Immature Gran % (Auto) 0.300 Neut % (Auto) 59.1 Lymph % (Auto) 27.1 [place] % (Auto) 8.9 Eos % (Auto) 3.8 Baso % (Auto) 0.8 Absolute Neuts (auto) 4.2 Absolute Lymphs (auto) 1.94 Nucleated RBC % 0 Sodium 140 Potassium 4.3 Chloride 108 H Carbon Dioxide 27.0 Anion Gap 5 BUN 22 H Creatinine 1.39 H Estim Creat Clear Calc 35.54 Est GFR (MDRD) Af Amer 62 Est GFR (MDRD) Non-Af 51 L BUN/Creatinine Ratio 15.8 Glucose 122 H Calcium 8.8 Total Bilirubin 0.40 AST 14 L ALT 16 Alkaline Phosphatase 26 L Troponin I High Sens 9 Total Protein 7.2 Albumin 3.5 Globulin 3.7 Albumin/Globulin Ratio 0.9 Urine Color Yellow Urine Clarity Sl. Cloudy Urine pH 6.0 Ur Specific [place] 1.015 Urine Protein Negative Urine Glucose (UA) Normal Urine Ketones Negative Urine Occult Blood Negative Urine Nitrite Negative Urine Bilirubin Negative Urine Urobilinogen Normal Ur Leukocyte Esterase Negative Urine RBC 0 SEEN Urine WBC 0 SEEN Ur Squamous Epith Cells 0-5 SEEN Urine Bacteria 0 SEEN Urine Mucus 0 SEEN POC Glucose 162 H Radiography Chest X-Ray - ED: 1 View, Read by ED Physician, Read by Radiologist and No Acute Disease Diagnostic Testing: Clinical Impression(s) from Imaging Studies Brain CT 04/25/23 21:32 IMPRESSION: Chronic involutional changes of the brain. Electronically Signed: Jere Sinha MD at 22:15 EDT Reading Location ID and State: [id number] / [employer] Tel , Service support , Chest X-Ray 04/25/23 22:01 IMPRESSION: Normal x-ray examination of the chest. Electronically Signed: Jere Sinha MD at 23:05 EDT , CT scan of the brain was obtained. There is no acute intracranial abnormality. There are chronic involutional changes noted. This was interpreted by the radiologist and was also independently reviewed by myself. Portable 1 view chest x-ray was obtained. On my independent interpretation, lung eugene are clear. There is normal cardiac silhouette. Bony thorax is normal. There is no acute process noted. Radiologist also interpreted the x- ray and agrees. EKG Initial EKG: Attestation: I personally reviewed and interpreted this EKG as follows: Interpretation: Sinus Rhythm (65) and No Acute Injury Pattern Comments: EKG was obtained. On my independent interpretation, it showed a normal sinus rhythm with a rate of 65. NC interval, QRS interval, and QTc intervals were all normal. [place] was normal. There are no acute ST or T wave changes. Prior EKG tracings: available for review Prior: Unchanged (05/29/2022) Treatment and Re-Evaluation :: Patient was advised of his findings. Patient was advised that this could have been a TIA and he would need to be admitted to the hospital for further work-up. Patient is agreeable with this. Case was discussed with the hospitalist. He will admit the patient to his service. Patient understood and was agreeable with the plan. All questions were answered. Discharge Plan Triage Chief Complaint: Confusion ED Provider: Mariano Avitia Dx/Rx/DC Orders Clinical Impression: Expressive aphasia, TIA (transient ischemic attack) Prescriptions: No Action zinc gluconate 30 mg tablet 25 mg PO DAILY omega 7-nvx-lbv-fish oil 300-1,000 mg capsule 1 cap PO DAILY simvastatin 10 MG tablet 10 mg PO QHS Dorzolamide Hcl/Timolol Maleat [Dorzolamide-Timolol Eye Drops] 10 ML drops 1 drp OP DAILY Omeprazole [Prilosec] 40 MG capsule 40 mg PO DAILY latanoprost 0.005 % drops 1 drp EACH EYE QHS Patient Comments: place 1 drop into both eyes at bedtime metoprolol tartrate 25 mg tablet 25 mg PO BID Qty: 180 3RF Eliquis 5 mg tablet 5 mg PO BID Qty: 60 11RF Primary Care Provider: Yung Covington Referrals: Yung Covington MD [Primary Care Provider] - Disposition Disposition: Acute Care [facility]
[2023-04-26] VITALS (8 sets, daily range): BP systolic 93–147; BP diastolic 60–87; PULSE 65–82; RESP 16–20; TEMP 36.4–36.7; O2SAT 94–97; BMI 23.5
[2023-04-26] LABS: Reflex Troponin-HS? (from REC) Y
[2023-04-26 00:30] LABS: Troponin-I HS 7 pg/mL (3.0-78.0)
--- NOTE | 2023-04-26 00:33 | HP.PCM.HOS_ITS ---
HPI - General General Date of Admission: 04/25/23 Date of Service: 04/25/23 Chief Complaint: Momentary feeling confusion could not get snowboard out. HPI Narrative CARLOZ COHEN, is a 87 M with history of paroxysmal A-fib on Eliquis came to ED for transient confusion could not get the words out. Patient stated he could not remember his daughter's heart sounds name or close new worsening but he remembered his name, month in the ER. Patient also could not verbalize although he was able to understand and can think of words. He said words were not coming out and this episode lasted for about 1.5 hours. Upon arrival to the emergency department patient felt back to normal. No focal weakness, tingling numbness dysphagia, quadrantanopsia, hemianopia or anopia. Patient had mild headache earlier today. Twelve-lead EKG in ER shows normal sinus rhythm at 65 bpm. QTc 443 ms. Stroke alert was not called as patient's symptoms resolved and NIH stroke scale 0. PFSH Medical History Former smoker GERD (gastroesophageal reflux disease) Paroxysmal atrial fibrillation Home Medications Dorzolamide Hcl/Timolol Maleat [Dorzolamide-Timolol Eye Drops] 1 drp OP DAILY 09/05/15 [History Last Taken Unknown] Omeprazole [Prilosec] 40 mg PO DAILY 09/05/15 [History Last Taken Unknown] simvastatin 10 mg tablet 10 mg PO QHS 09/05/15 [History Last Taken Unknown] latanoprost 0.005 % eye drops 1 drp EACH EYE QHS 05/28/22 [History Last Taken Unknown] metoprolol tartrate 25 mg tablet 25 mg PO BID #180 tabs 06/29/22 [Rx Last Taken Unknown] apixaban 5 mg tablet (Eliquis) 5 mg PO BID use this RX for next fill, pt fille 07/07/22. Thx. #60 tabs 07/08/22 [Rx Last Taken Unknown] omega 0-ctj-mfc-fish oil 300 mg-1,000 mg capsule 1 cap PO DAILY 09/08/22 [History Last Taken Unknown] zinc gluconate 30 mg tablet 25 mg PO DAILY 09/08/22 [History Last Taken Unknown] Allergy/AdvReac Type Severity Reaction Status Date / Time No Known Allergies Allergy Verified 04/25/23 20:18 Family History Mother Dementia Father Heart disease Surgical History History of hip replacement History of repair of hiatal hernia Social History Smoking Status: Former smoker ROS ROS Narrative Constitutional: No acute fatigue and weakness or viral-like illness. No fever. HEENT: Reports systems reviewed and no addt'l complaints, except as documented Respiratory/Chest: No acute shortness of breath or respiratory distress or wheezing. CVS: History of paroxysmal A-fib on Eliquis. No chest pressure or tightness or pain. Gastrointestinal: Denies coffee ground emesis, hematemesis or vomiting Genitourinary: Denies burning urination or new urinary tract symptoms Musculoskeletal: Denies acute joint pain or limited range of motion. No acute injury Neurologic: Denies seizure-like symptoms. TIA-like symptoms as described in HPI. skin: No ulcer. No rash Endocrinology: Reports systems reviewed and no addt'l complaints, except as documented Hematologic/Lymphatic: Reports systems reviewed and no addt'l complaints, except as documented Rest 14 ROS are negative except as mentioned in HPI Vital Signs Vital Signs Vital Signs: 04/25/23 20:18 04/25/23 22:01 04/25/23 23:33 Temperature 97.8 F Temperature Source Temporal Temporal Pulse Rate 67 65 64 Respiratory Rate 18 17 22 H Blood Pressure 156/86 H 129/71 H Blood Pressure Mean 109 90 Pulse Ox 97 97 Oxygen Delivery Method Room Air Room Air Room Air Oxygen Flow Rate (L/min) 97.8 04/26/23 00:06 04/26/23 00:20 Temperature 98.1 F Temperature Source Oral Pulse Rate 71 82 Respiratory Rate 20 H 18 Blood Pressure 126/71 H 147/87 H Blood Pressure Mean 89 107 Pulse Ox 97 Oxygen Delivery Method Room Air Room Air Oxygen Flow Rate (L/min) Weight Weight: 164 lb 9.6 oz Body Mass Index (BMI) 25.0 Physical Exam Narrative General: Alert, Oriented x3, Cooperative HEENT: Atraumatic, PERRLA, EOMI, Normocephalic Oral: Oral mucosa dry. No Gingival or Mucosal Lesions/ Ulcerations Neck: Supple, No JVD, Negative Carotid Bruits Lungs: Air entry diminished in bilateral lung bases. No crepitation/rhonchi Cardiovascular: Regular rate, Regular Rhythm, Normal S1, Normal S2, No murmurs Abdomen: Bowel Sounds Present, Soft, Non Tender, Non-Distended : No renal angle tenderness. No suprapubic tenderness. Extremities: No edema, Capillary Refill Less than 3 Seconds Skin: No rashes, No breakdown Musculoskeletal: No Tenderness to Palpation of Joints or Extremities Neurological: Cranial nerves II-XII grossly intact, DTR 2+/4. No acute focal neurological deficit. NIH stroke scale 0. Normal speech. Psych/Mental Status: Normal Affect, Appropriate. Results Lab / Micro Data 04/25/23 21:55 04/25/23 21:55 Labs: Laboratory Results - last 24 hr 04/25/23 20:25: POC Glucose 162 H 04/25/23 21:55: WBC 7.2, RBC 3.90 L, Hgb 12.0 L, Hct 37.4 L, MCV 95.9 H, MCH 30.8, MCHC 32.1, RDW Std Deviation 47.7 H, RDW Coeff of Pippa 13.5, Plt Count 216, MPV 10.6, Immature Gran % (Auto) 0.300, Neut % (Auto) 59.1, Lymph % (Auto) 27.1, [place] % (Auto) 8.9, Eos % (Auto) 3.8, Baso % (Auto) 0.8, Absolute Neuts (auto) 4.2, Absolute Lymphs (auto) 1.94, Nucleated RBC % 0, Sodium 140, Potassium 4.3, Chloride 108 H, Carbon Dioxide 27.0, Anion Gap 5, BUN 22 H, Creatinine 1.39 H, Estim Creat Clear Calc 35.54, Est GFR (MDRD) Af Amer 62, Est GFR (MDRD) Non-Af 51 L, BUN/Creatinine Ratio 15.8, Glucose 122 H, Calcium 8.8, Total Bilirubin 0.40, AST 14 L, ALT 16, Alkaline Phosphatase 26 L, Troponin I High Sens 9, Total Protein 7.2, Albumin 3.5, Globulin 3.7, Albumin/Globulin Ratio 0.9 04/25/23 22:15: Urine Color Yellow, Urine Clarity Sl. Cloudy, Urine pH 6.0, Ur Specific [place] 1.015, Urine Protein Negative, Urine Glucose (UA) Normal, Urine Ketones Negative, Urine Occult Blood Negative, Urine Nitrite Negative, Urine Bilirubin Negative, Urine Urobilinogen Normal, Ur Leukocyte Esterase Negative, Urine RBC 0 SEEN, Urine WBC 0 SEEN, Ur Squamous Epith Cells 0-5 SEEN, Urine Ester teria 0 SEEN, Urine Mucus 0 SEEN 04/26/23 00:10: Troponin I High Sens [address] 04/25/23 21:32 IMPRESSION: Chronic involutional changes of the brain. Electronically Signed: Jere Sinha MD at 22:15 EDT Reading Location ID and State: [id number] / [employer] Tel , Service support , Chest X-Ray 04/25/23 22:01 IMPRESSION: Normal x-ray examination of the chest. Electronically Signed: Jere Sinha MD at 23:05 EDT Reading Location ID and State: [id number] / [employer] Tel , Service support , Assessment & Plan Assessment/Plan (1) TIA (transient ischemic attack): (2) Expressive aphasia: PLAN: Plan 1. TIA mainly expressive aphasia and transient confusion: Patient is being admitted in PCU. PT, OT, speech therapy/swallow evaluation and management, nu rsing NIH stroke scale, BP and glucose monitoring and control as per stroke protocol. TSH, A1c fasting lipid profile tomorrow AM. MRI brain and 2D echo with bubble contrast study ordered. Patient creatinine is elevated 1.39, estimated creatinine current 35 mill per minute therefore MRA head and neck ordered. Carotid Doppler ordered as backup. Baby aspirin and atorvastatin [address] head without contrast in the ER does not show acute intracranial abnormality. 2. CKD stage IIIb: Patient baseline creatinine is around 1.01 June 2022. Currently 22/1.39. IV fluid normal saline ordered. Avoid IV contrast. 3. Paroxysmal A-fib: Patient was last admitted in May 2022 for A-fib with RVR. Patient is in sinus rhythm. Patient states he knows when his heart is irregular. Patient is on metoprolol and enoxaparin 4. GERD, continue on PPI 4. DVT PPx-on Eliquis. Living will/advanced directive/end of life care: Patient does not have living will or advanced directive. His son Jeovany is the power of deputy attorney general for health. After discussion of benefits/risks procedures involved with full code, DNR CC arrest and DNR CC, the patient opted for full code. Patient does want artificial life support including intubation, tube feed, ventilator and/chest compression, central venous catheter, vasopressor and DC shock if needed Total time spent in [id number] encounter in discussion of advanced directive 17 minutes. Laboratory Results 04/25/23 20:25: POC Glucose 162 H 04/25/23 21:55: WBC 7.2, RBC 3.90 L, Hgb 12.0 L, Hct 37.4 L, MCV 95.9 H, MCH 30.8, MCHC 32.1, RDW Std Deviation 47.7 H, RDW Coeff of Pippa 13.5, Plt Count 216, MPV 10.6, Immature Gran % (Auto) 0.300, Neut % (Auto) 59.1, Lymph % (Auto) 27.1, [place] % (Auto) 8.9, Eos % (Auto) 3.8, Baso % (Auto) 0.8, Absolute Neuts (auto) 4.2, Absolute Lymphs (auto) 1.94, Nucleated RBC % 0, Sodium 140, Potassium 4.3, Chloride 108 H, Carbon Dioxide 27.0, Anion Gap 5, BUN 22 H, Creatinine 1.39 H, Estim Creat Clear Calc 35.54, Est GFR (MDRD) Af Amer 62, Est GFR (MDRD) Non-Af 51 L, BUN/Creatinine Ratio 15.8, Glucose 122 H, Calcium 8.8, Total Bilirubin 0.40, AST 14 L, ALT 16, Alkaline Phosphatase 26 L, Troponin I High Sens 9, Total Protein 7.2, Albumin 3.5, Globulin 3.7, Albumin /Globulin Ratio 0.9 04/25/23 22:15: Urine Color Yellow, Urine Clarity Sl. Cloudy, Urine pH 6.0, Ur Specific [place] 1.015, Urine Protein Negative, Urine Glucose (UA) Normal, Urine Ketones Negative, Urine Occult Blood Negative, Urine Nitrite Negative, Urine Bilirubin Negative, Urine Urobilinogen Normal, Ur Leukocyte Esterase Negative, Urine RBC 0 SEEN, Urine WBC 0 SEEN, Ur Squamous Epith Cells 0-5 SEEN, Urine Bacteria 0 SEEN, Urine Mucus 0 SEEN 04/26/23 00:10: Troponin I High Sens 7 Clinical Impression(s) from Imaging Studies Brain CT 04/25/23 21:32 IMPRESSION: Chronic involutional changes of the brain. Electronically Signed: Jere Sinha MD at 22:15 EDT Reading Location ID and State: [id number] / [employer] , Service support , Chest X-Ray 04/25/23 22:01 IMPRESSION: Normal x-ray examination of the chest. Electronically Signed: Jere Sinha MD at 23:05 EDT Reading Location ID and State: [id number] / [employer] Tel , Service support , Charges/Coding Visit Charges Inpatient E&M: 35781 Init Hosp L3 Procedures Hospitalists Procedures: 91683 Advncd Care Plan 30 Min
--- NOTE | 2023-04-26 01:27 | MRI_ITS ---
HISTORY: TIA, sudden onset of episode of confusion. TECHNIQUE: Routine [place]/brain 3D time of flight MR angiogram protocol was performed without contrast. 3D reconstructions were reviewed. 195 images. COMPARISON: None. FINDINGS: ICAs: No significant stenosis at the intracranial/visualized segments. Mild dolichoectasia of the anterior circulation. ACAs: No significant stenosis at the visualized segments. MCAs: No significant stenosis at the visualized segments. lens examiner: No significant stenosis at the visualized segments. BASILAR ARTERY: No significant stenosis. VERTEBRAL ARTERIES: No significant stenosis at the intradural/visualized segments. No evidence of intracranial aneurysm or vascular malformation. MRI/MRA Head ONLY without Contrast IMPRESSION: No evidence for large vessel occlusion or other focal vascular abnormality in the [place] region. Electronically Signed: Marium Vazquez MD at 12:04 EDT ,
--- NOTE | 2023-04-26 01:27 | MRI_ITS ---
HISTORY: TIA, sudden onset of confusion episode. TECHNIQUE: Routine asov-oj-bxvwyh carotid MR angiogram protocol was performed without contrast. 3D reconstructions were reviewed. NASCET criteria using the distal ICAs for comparison were used for evaluation of stenoses. 528 images. COMPARISON: None. FINDINGS: RIGHT CCA: No occlusion or significant stenosis. RIGHT ICA: No occlusion. [50% stenosis distally with limited evaluation due to artifact. LEFT CCA: No occlusion or significant stenosis. LEFT ICA: No occlusion. Up to 50% stenosis proximal and distal with limited evaluation due to artifact. RIGHT VERTEBRAL ARTERY: No occlusion or significant stenosis. Tortuous. LEFT VERTEBRAL ARTERY: No occlusion or significant stenosis. MRI/MRA Neck without Contrast IMPRESSION: No evidence for occlusion in the vertebral or carotid arteries of the neck. Electronically Signed: Marium Vazquez MD at 12:08 EDT ,
--- NOTE | 2023-04-26 01:27 | MRI_ITS ---
HISTORY: TIA, sudden onset of episode of confusion. TECHNIQUE: Multiplanar and multisequence MR images of the brain were obtained without contrast. 292 images. COMPARISON: CT prior day. FINDINGS: BRAIN PARENCHYMA: Multiple foci and small zones of increased T2 FLAIR signal in the bilateral cerebral white matter. No abnormal focus of restricted diffusion. No acute intracranial hemorrhage identified. CSF SPACES: Generalized volume loss. No significant midline shift or other mass effect.No extra-axial fluid collection. Mild dysgenesis versus postoperative and cystic change of the genu of the corpus callosum. VASCULAR SYSTEM: Major intracranial flow voids are maintained. PARANASAL SINUSES AND MASTOID AIR CELLS: Mild fluid in the right mastoid air cells. ORBITS: Bilateral lens resections. MRI/Brain without Contrast IMPRESSION: No evidence for acute infarct. Chronic involutional and white matter changes. Electronically Signed: Marium Vazquez MD at 12:02 EDT ,
--- NOTE | 2023-04-26 01:45 | ECHOD_ITS ---
Reason For Study: CVA Procedure This was a 2D Doppler, Color Flow transthoracic echocardiogram. Exam performed portable in patient room. Left Ventricle Normal LV size. Moderate concentric left ventricular hypertrophy. The left ventricular ejection fraction is 65 %. Normal diastology for age. Right Ventricle Normal right ventricle. Atria The left atrium is moderately enlarged. The right atrium is mildly enlarged. Mitral Valve Trivial mitral valve insufficiency. Tricuspid Valve Trivial tricuspid valve insufficiency. Normal pulmonary artery pressure. Aortic Valve Aortic sclerosis, no stenosis. Pulmonic Valve The pulmonic valve is not well visualized. Great Vessels Normal sized aortic root. MMode/2D Measurements & Calculations LVIDd: 3.8 cm IVSd: 1.4 cm LAV(MOD-bp): 75.2 ml LVIDs: 2.0 cm LVPWd: 1.2 cm LAV(MOD-bp) Indexed: 41.0 ml/m2 RVDd: 3.7 cm FS: 45.5 % LAV(MOD-sp2): 70.6 ml LAV(MOD-sp4): 67.8 ml LVAd ap4: 24.9 cm2 SV(MOD-sp4): 46.1 ml SV(sp4-el): 49.0 ml LVLd ap4: 7.6 cm EDV(MOD-sp4): 67.6 ml EDV(sp4-el): 69.4 ml LVAs ap4: 12.1 cm2 LVLs ap4: 6.1 cm ESV(MOD-sp4): 21.4 ml ESV(sp4-el): 20.4 ml EF(MOD-sp4): 68.3 % EF(sp4-el): 70.6 % LA A4 area: 21.4 cm2 LA dimension(2D): 3.3 cm RA A4 area: 22.8 cm2 TAPSE: 2.4 cm Time Measurements MV dec time: 0.28 sec Doppler Measurements & Calculations MV E max alec: 82.8 cm/sec Lat Peak E' Alec: 9.9 cm/sec Med Peak E' Alec: 7.1 cm/sec MV A max alec: 72.6 cm/sec E/E' lat: 8.3 E/E' med: 11.7 MV E/A: 1.1 MV V2 max: 104.7 cm/sec Ao V2 max: 96.7 cm/sec MV max P.4 mmHg MV dec slope: 301.6 cm/sec2 Ao max P.7 mmHg MV V2 mean: 70.8 cm/sec Ao V2 mean: 65.6 cm/sec MV mean P.2 mmHg Ao mean P.0 mmHg MV V2 VTI: 42.1 cm Ao V2 VTI: 22.9 cm AV (velocity ratio): 0.96 LV V1 max: 97.8 cm/sec PA V2 max: 99.5 cm/sec TR max alec: 219.3 cm/sec LV V1 max P.8 mmHg PA V2 mean: 73.6 cm/sec TR max P.2 mmHg LV V1 mean P.1 mmHg LV V1 mean: 68.8 cm/sec LV V1 VTI: 22.0 cm ECHO/Echo Complete Interpretation Summary Moderate concentric left ventricular hypertrophy. The left ventricular ejection fraction is 65 %. The left atrium is moderately enlarged. The right atrium is mildly enlarged. Ordering Physician: Sabino Sullivan Referring Physician: JOHNNY DE LEON Performed By: Bettie Enciso RCS
[2023-04-26] MEDS: 0.9% Normal Saline (1000mL) 1,000 ML 100 ML IV (02:04)
[2023-04-26] MEDS: Acetaminophen 325 MG Tablet 650 MG PO ×2 (04:39→14:33)
[2023-04-26 06:33] LABS: Anion Gap 3 (5-15); BUN 21 mg/dL (7-18); BUN/Creat Ratio 16.5 RATIO (10-20); Calcium,Total 8.3 mg/dL (8.5-10.1); Chloride 109 mmol/L (98-107); Cholesterol 113 mg/dL (200); Creatinine, Serum 1.27 mg/dL (0.70-1.30); EST Glomerular Filtration Rate 57 mL/min (>60); Est Glom Filt Rate - Afr Amer 69 mL/min (>60); Glucose 114 mg/dL (74-106); High Density Lipoprotein 30 mg/dL; Potassium 3.9 mmol/L (3.5-5.1); Sodium Level 137 mmol/L (136-145); Triglycerides 125 mg/dL; Very Low Density Lipoprotein 25 mg/dL (5-40)
[2023-04-26 06:46] LABS: Thyroid Stim Hormone (TSH) 3.05 uIU/mL (0.358-3.74)
--- NOTE | 2023-04-26 08:16 | PN.HOSP_ITS ---
Reason for Visit Reason for Visit: Diagnoses Transient cerebral ischemic attack, unspecified (04/26/23) Aphasia (04/26/23) Subjective Subjective Expressive aphasia while walking his dog. Could not recall names of neighbors nor his children. Symptoms lasted about an hour. Never had this before. Objective Data Objective Data Vital Signs: Vital Signs Temp Pulse Resp BP Pulse Ox O2 Del Method O2 Flow Rate 36.5 C L 69 16 101/60 95 Room Air 97.8 04/26/23 07:30 04/26/23 07:30 04/26/23 07:30 04/26/23 07:30 04/26/23 07:30 04/26/23 07:30 04/25/23 23:33 Oxygen Flow Rate (L/min) 97.8 Oxygen Delivery Method Room Air Weight: 70.2 kg Body Mass Index (BMI) 23.5 Lab / Micro Data 04/25/23 21:55 04/26/23 05:15 Labs: Laboratory Results - last 24 hr 04/25/23 20:25: POC Glucose 162 H 04/25/23 21:55: WBC 7.2, RBC 3.90 L, Hgb 12.0 L, Hct 37.4 L, MCV 95.9 H, MCH 30.8, MCHC 32.1, RDW Std Deviation 47.7 H, RDW Coeff of [place] 13.5, Plt Count 216, MPV 10.6, Immature Gran % (Auto) 0.300, Neut % (Auto) 59.1, Lymph % (Auto) 27.1, Gray % (Auto) 8.9, Eos % (Auto) 3.8, Baso % (Auto) 0.8, Absolute Neuts (auto) 4.2, Absolute Lymphs (auto) 1.94, Nucleated RBC % 0, Sodium 140, Potassium 4.3, Chloride 108 H, Carbon Dioxide 27.0, Anion Gap 5, BUN 22 H, Creatinine 1.39 H, Estim Creat Clear Calc 35.54, Est GFR (MDRD) Af Amer 62, Est GFR (MDRD) Non-Af 51 L, BUN/Creatinine Ratio 15.8, Glucose 122 H, Calcium 8.8, Total Bilirubin 0.40, AST 14 L, ALT 16, Alkaline Phosphatase 26 L, Troponin I High Sens 9, Total Protein 7.2, Albumin 3.5, Globulin 3.7, Albumin/Globulin Ratio 0.9 04/25/23 22:15: Urine Color Yellow, Urine Clarity Sl. Cloudy, Urine pH 6.0, Ur Specific [place] 1.015, Urine Protein Negative, Urine Glucose (UA) Normal, Urine Ketones Negative, Urine Occult Blood Negative, Urine Nitrite Negative, Urine Bilirubin Negative, Urine Urobilinogen Normal, Ur Leukocyte Esterase Negative, Urine RBC 0 SEEN, Urine WBC 0 SEEN, Ur Squamous Epith Cells 0-5 SEEN, Urine Bacteria 0 SEEN, Urine Mucus 0 SEEN 04/26/23 00:10: Troponin I High Sens 7 04/26/23 05:15: Sodium 137, Potassium 3.9, Chloride 109 H, Carbon Dioxide 25.0, Anion Gap 3 L, BUN 21 H, Creatinine 1.27, Estim Creat Clear Calc 38.90, Est GFR (MDRD) Af Amer 69, Est GFR (MDRD) Non-Af 57 L, BUN/Creatinine Ratio 16.5, Glucose 114 H, Calcium 8.3 L, Triglycerides 125, Cholesterol 113, LDL Cholesterol 58, VLDL Cholesterol 25, HDL Cholesterol 30 L, TSH 3.05 Radiography Diagnostic Testing: Radiology Impression Brain CT 04/25/23 21:32 IMPRESSION: Chronic involutional changes of the brain. Electronically Signed: Jere Sinha MD at 22:15 EDT Reading Location ID and State: [id number] / [employer] Tel , Service support , Chest X-Ray 04/25/23 22:01 IMPRESSION: Normal x-ray examination of the chest. Electronically Signed: Jere Sinha MD at 23:05 EDT , Physical Exam Const alert and no apparent distress HEENT head/scalp atraumatic and moist oral mucous membranes Resp normal respiratory effort, no retractions, no use of accessory muscles and clear to auscultation bilaterally Cardio regular rate, regular rhythm, S1 normal heart sound and S2 normal heart sound GI normal to inspection, nondistended, normoactive bowel sounds, soft to palpation, non-tender and non-distended Extremity normal to inspection and full ROM Neuro oriented x3, CN's II-XII intact bilaterally and moves all extremities Sensorium / Orientation: awake and alert Assessment & Plan Assessment/Plan (1) TIA (transient ischemic attack): PLAN: Presents with expressive aphasia. Symptoms lasted an hour. PT, OT, speech therapy/swallow evaluation and management TSH, A1c fasting lipid profile tomorrow AM. MRI brain showed no acute process. MRA of the head and neck were unremarkable. 2D echo with bubble contrast showed an EF of 65%. Baby aspirin and atorvastatin [address] head without contrast in the ER does not show acute intracranial abnormality. PLAN: Plan Chronic conditions: * CKD stage IIIb: Patient baseline creatinine is around 1.01 June 2022. Currently 25/07.39. IV fluid normal saline ordered. Avoid IV contrast. * Paroxysmal A-fib: Patient was last admitted in May 2022 for A-fib with RVR. Patient is in sinus rhythm. Patient states he knows when his heart is irregular. Patient is on metoprolol and apixaban. * GERD, continue on PPI VTE prophylaxis: not indicate as already on apixaban. Code status: full. Charges/Coding Visit Charges Inpatient E&M: 27316 Subs Hosp L2
[2023-04-26] MEDS: Aspirin 81 MG TAB.CHEW PO (08:32)
[2023-04-26] MEDS: Dorzolamide HCL/Timolol 10 ml Bottle 1 DRP OPHTHALMIC (08:33)
[2023-04-26] MEDS: Pantoprazole Sodium 40 MG Tablet PO (08:33)
[2023-04-26] MEDS: APIXABAN 5 MG TABLET PO (08:33)
[2023-04-26] MEDS: Metoprolol Tartrate 25 MG Tablet PO (08:33)
[2023-04-26 09:34] LABS: Hemoglobin A1c 5.9 % (3.8-5.6)
--- NOTE | 2023-04-26 11:59 | CASEMGMT ---
Social Work SW completed PHQ-9 w/pt, pt scored a 0, no indications of depression from this assessment. DERRICK Bunn
[2023-04-26] MEDS: 0.9% Saline Lock 10 ML Syringe IV (12:12)
--- NOTE | 2023-04-26 16:49 | CASEMGMT ---
Met with patient to complete MCGUIRE form. MCGUIRE form explained to patient who voiced understanding and signed form. Original form placed in pt?s chart and copy provided to patient. Rosemarie Shrestha, Discharge Planning Asst.
--- NOTE | 2023-04-26 17:00 | DS.PCM_ITS ---
Providers Date of Admission: 04/26/23 Primary Care Physician: Dr. Yung De Leon MD Reason For Visit: TIA Diagnosis Discharge Diagnosis (1) TIA (transient ischemic attack): Status: Acute Code(s): G45.9 - Transient cerebral ischemic attack, unspecified Plan: Presents with expressive aphasia. Symptoms lasted an hour. PT, OT, speech therapy/swallow evaluation and management TSH, A1c fasting lipid profile tomorrow AM. MRI brain showed no acute process. MRA of the head and neck were unremarkable. 2D echo with bubble contrast showed an EF of 65%. Baby aspirin and atorvastatin [address] head without contrast in the ER does not show acute intracranial abnormality. Plan Chronic conditions: * CKD stage IIIb: Patient baseline creatinine is around 1.01 June 2022. Currently . IV fluid normal saline ordered. Avoid IV contrast. * Paroxysmal A-fib: Patient was last admitted in May 2022 for A-fib with RVR. Patient is in sinus rhythm. Patient states he knows when his heart is irregular. Patient is on metoprolol and apixaban. * GERD, continue on PPI VTE prophylaxis: not indicate as already on apixaban. Code status: full. Medications at Discharge Home Medications Dorzolamide Hcl/Timolol Maleat [Dorzolamide-Timolol Eye Drops] 1 drp OP DAILY 09/05/15 Omeprazole [Prilosec] 40 mg PO DAILY 09/05/15 simvastatin 10 mg tablet 10 mg PO QHS 09/05/15 latanoprost 0.005 % eye drops 1 drp EACH EYE QHS 05/28/22 metoprolol tartrate 25 mg tablet 25 mg PO BID #180 tabs 06/29/22 apixaban 5 mg tablet (Eliquis) 5 mg PO BID use this RX for next fill, pt fille 07/07/22. Thx. #60 tabs 07/08/22 omega 9-erq-gsc-fish oil 300 mg-1,000 mg capsule 1 cap PO DAILY 09/08/22 zinc gluconate 30 mg tablet 25 mg PO DAILY 09/08/22 aspirin 81 mg chewable tablet 81 mg PO BREAKFAST #0 tabs 04/26/23 Hospital Course Procedures 2-D Echocardiogram Summary of Care Provided Minutes Spent on Discharge: 35 Hospital Course: Patient presented with expressive aphasia. Symptoms lasted about an hour and quickly resolved. Patient was admitted and underwent stroke work-up with an MRI, MRA of the head and neck and echocardiogram. Work-up, including lipid panel was unremarkable. Considering the patient had a TIA despite being compliant with apixaban. We will add aspirin on top of his regimen. Patient was given the option to see virtual neurology here in the hospital. He declined preferring to follow-up with outpatient neurology. Patient will be provided information follow-up with outpatient neurology. Weight / BMI Weight Weight: 70.2 kg Body Mass Index (BMI) 23.5 ABG / Lab / Microbiology Data 04/25/23 21:55 04/26/23 05:15 Laboratory: Laboratory Results - last 24 hr 04/25/23 20:25: POC Glucose 162 H 04/25/23 21:55: WBC 7.2, RBC 3.90 L, Hgb 12.0 L, Hct 37.4 L, MCV 95.9 H, MCH 30.8, MCHC 32.1, RDW Std Deviation 47.7 H, RDW Coeff of [place] 13.5, Plt Count 216, MPV 10.6, Immature Gran % (Auto) 0.300, Neut % (Auto) 59.1, Lymph % (Auto) 27.1, [place] % (Auto) 8.9, Eos % (Auto) 3.8, Baso % (Auto) 0.8, Absolute Neuts (auto) 4.2, Absolute Lymphs (auto) 1.94, Nucleated RBC % 0, Sodium 140, Potass ium 4.3, Chloride 108 H, Carbon Dioxide 27.0, Anion Gap 5, BUN 22 H, Creatinine 1.39 H, Estim Creat Clear Calc 35.54, Est GFR (MDRD) Af Amer 62, Est GFR (MDRD) Non-Af 51 L, BUN/Creatinine Ratio 15.8, Glucose 122 H, Calcium 8.8, Total Bilirubin 0.40, AST 14 L, ALT 16, Alkaline Phosphatase 26 L, Troponin I High Sens 9, Total Protein 7.2, Albumin 3.5, Globulin 3.7, Albumin/Globulin Ratio 0.9 04/25/23 22:15: Urine Color Yellow, Urine Clarity Sl. Cloudy, Urine pH 6.0, Ur Specific [place] 1.015, Urine Protein Negative, Urine Glucose (UA) Normal, Urine Ketones Negative, Urine Occult Blood Negative, Urine Nitrite Negative, Urine Bilirubin Negative, Urine Urobilinogen Normal, Ur Leukocyte Esterase Negative, Urine RBC 0 SEEN, Urine WBC 0 SEEN, Ur Squamous Epith Cells 0-5 SEEN, Urine Bacteria 0 SEEN, Urine Mucus 0 SEEN 04/26/23 00:10: Troponin I High Sens 7 04/26/23 05:15: Sodium 137, Potassium 3.9, Chloride 109 H, Carbon Dioxide 25.0, Anion Gap 3 L, BUN 21 H, Creatinine 1.27, Estim Creat Clear Calc 38.90, Est GFR (MDRD) Af Amer 69, Est GFR (MDRD) Non-Af 57 L, BUN/Creatinine Ratio 16.5, Glucose 114 H, Hemoglobin A1c 5.9 H, Calcium 8.3 L, Triglycerides 125, Cholesterol 113, LDL Cholesterol 58, VLDL Cholesterol 25, HDL Cholesterol 30 L, TSH 3.05 Radiography Diagnostic Testing: Radiology Impression Brain CT 04/25/23 21:32 IMPRESSION: Chronic involutional changes of the brain. Electronically Signed: Jere Sinha MD at 22:15 EDT , Chest X-Ray 04/25/23 22:01 IMPRESSION: Normal x-ray examination of the chest. Electronically Signed: Jere Sihna MD at 23:05 EDT , Brain MRI 04/26/23 01:27 IMPRESSION: No evidence for acute infarct. Chronic involutional and white matter changes. Electronically Signed: Marium Vazquez MD at 12:02 EDT , Head MRA 04/26/23 01:27 IMPRESSION: No evidence for large vessel occlusion or other focal vascular abnormality in the [place] region. Electronically Signed: Marium Vazquez MD at 12:04 EDT , Neck MRA 04/26/23 01:27 IMPRESSION: No evidence for occlusion in the vertebral or carotid arteries of the neck. Electronically Signed: Marium Vazquez MD at 12:08 EDT , Echocardiogram 04/26/23 01:45 Interpretation Summary Moderate concentric left ventricular hypertrophy. The left ventricular ejection fraction is 65 %. The left atrium is moderately enlarged. The right atrium is mildly enlarged. Ordering Physician: Sabino Sullivan Referring Physician: YUNG DE LEON Performed By: Bettie Enciso RCS D/C Instructions Discharge Diet: Low fat / Low cholesterol Meaningful Use Info Meaningful Use Diagnoses (Choose all that apply): Ischemic CVA CVA Therapy Assessed for PT,OT and/or ST?: Yes Ischemic Stroke Antithrombotic order at d/c?: Yes Dx of Atrial fib/flutter?: Yes Anticoagulant at discharge?: Yes Statins at discharge?: Yes Primary Dx Acute Ischemic CVA?: Yes IV thrombolytic ordered during stay?: No Reason IV thrombolytic not ordered: Procedure not Indicated Discharge Plan Admission Admit Date/Time: 04/26/23 01:07 Primary Reason for Your Visit: TIA Attending Provider: Mariano Shah Primary Care Provider: Yung De Leon Consulting Providers: Sabino Sullivan Instructions Additional Instructions / Restrictions: You had a TIA (transient ischemic attack, also known as a mini stroke). Your work-up, including MRI of the brain, MRA of the head neck and echocardiogram were unremarkable. Continue taking Eliquis as you were previously. I have also added aspirin. Contact the neurology office to get set up for an appointment. If you do have any recurrent symptoms please notify your physician or return to the emergency room. Discharge Orders/Prescriptions Prescriptions: New aspirin 81 mg Tablet,Chewable 81 mg PO BREAKFAST Qty: 0 0RF Continued zinc gluconate 30 mg tablet 25 mg PO DAILY omega 9-nzi-mdk-fish oil 300-1,000 mg capsule 1 cap PO DAILY simvastatin 10 MG tablet 10 mg PO QHS Dorzolamide Hcl/Timolol Maleat [Dorzolamide-Timolol Eye Drops] 10 ML drops 1 drp OP DAILY Omeprazole [Prilosec] 40 MG capsule 40 mg PO DAILY latanoprost 0.005 % drops 1 drp EACH EYE QHS Patient Comments: place 1 drop into both eyes at bedtime metoprolol tartrate 25 mg tablet 25 mg PO BID Qty: 180 3RF Eliquis 5 mg tablet 5 mg PO BID Qty: 60 11RF Referrals / Follow Up: [facility] [Provider Group] - Within 1 Month Yung De Leon MD [Primary Care Provider] - Within 2 Weeks Disposition Disposition (needs filled in before D/C Order can be placed): Home, Self Care Charges/Coding Visit Charges Inpatient E&M: 45280 Disch Hosp >30min
== END 2023-04-26 17:02 | disposition home or self-care (01) ==
LOC: ED 23:53 → PCU 04-26 02:15
PROVIDERS: Admitting Provider Internal Medicine; Emergency Provider Emergency Medicine; PCP Family Medicine
DX: G45.9 Transient cerebral ischemic attack, unspecified (principal); I48.0 Paroxysmal atrial fibrillation; N18.32 Chronic kidney disease, stage 3b; Z87.891 Personal history of nicotine dependence; R41.0 Disorientation, unspecified; R47.01 Aphasia; K21.9 Gastro-esophageal reflux disease without esophagitis; Z79.899 Other long term (current) drug therapy; Z79.01 Long term (current) use of anticoagulants
CPT/HCPCS: 36415; 70450; 70544; 70547; 70551; 71045; 80048; 80053; 80061; 81001; 82962; 83036; 84443; 84484; 85025; 93005; 93306; 94668; 96361; 96374; 99221; 99284; J7030; A4216; G0378; J2405